=== PATIENT | female | born 1940 | race Caucasian/White ===

== ENCOUNTER 2022-11-10 09:45 | Outpatient (RCR) | payer MEDICARE, BC, SELFPAY | END 2023-01-09 23:59 | disposition home or self-care (01) | PROVIDERS: PCP Family Medicine; Visit Provider Otolaryngology | DX: R53.1 Weakness (principal); J38.01 Paralysis of vocal cords and larynx, unilateral; Z51.89 Encounter for other specified aftercare; C50.919 Malignant neoplasm of unspecified site of unspecified female breast; C78.00 Secondary malignant neoplasm of unspecified lung; C79.51 Secondary malignant neoplasm of bone ==

== ENCOUNTER 2022-12-31 16:13 | Inpatient (IN) | payer MEDICARE, BC, SELFPAY ==
[2022-12-31 16:36] VITALS: BP 137/55; PULSE 71; RESP 14; TEMP 36.9; O2SAT 93; O2SAT 94; BMI 27.5
--- NOTE | 2022-12-31 16:40 | P.IMHP_ITS ---
Hospitalist- H&P: HPI History of Present Illness Date Seen: 12/31/22 Chief complaint: Direct Admit Narrative: ADMISSION HISTORY AND PHYSICAL - HOSPITALIST Chief Complaint: Difficulty swallowing, metastatic breast cancer, pain control, new bilateral leg swelling HPI: This is an 82-year-old female who presents as a direct admit from our local [facility] in [place]. She was being seen today for follow-up when she was noted be weak, in pain, acute CHF, and not thriving in her home environment. She was 1st diagnosed with breast cancer in 1997. She had a 2nd primary many years later (2014). A bilateral mastectomy at that time (2014). 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 In the last 4 months she has started chemotherapy and is scheduled to start radiation tomorrow all of which is palliative. She is seen by Dr. Leger in oncology and Dr. Beatty in primary care. While the patient understands that she has a terminal prognosis she is ?not ready? for Hospice and go to [facility]. Her past medical history other than the breast cancer is relevant for chronic valvular cardiomyopathy, coronary artery disease, osteoporosis, type 2 insulin- dependent diabetes and chronic kidney disease. Patient has noted in the last couple of weeks that she has had a rapid increase in the swelling in her legs (to the point of weeping) and is having more trouble breathing in the last 24-48 hours. She noted at the oncology visit 2 days [employer] that she was up 10 lb. She has noted a more raspy breathing as well. No chest pain. No fever. No diarrhea. No vomiting. She has a hoarse voice from the metastatic scarring in her vocal cords and is having more trouble with swallowing her pills and her p.o. intake. Earlier today she she felt after eating a poe that is now stuck in her upper throat. She has tried coughing drinking and still having trouble. ER COURSE: N/A CODE STATUS: DNR/DNI EMERGENCY CONTACT PLAN: Romain, . I've updated the PFSH, medications and allergies in the [facility] tabs. INVESTIGATIONS: LABS/MICRO/ECG/IMAGING I've reviewed the labs from 12/30/22 and recent visits with oncology and primary care Yesterday, 12/30/22, her white blood cell count was 5.4. Her hemoglobin was 11.9. Her platelets were 262. She is hyponatremic at 129. Her glucose is 204. She has a normal potassium normal chloride. Her creatinine is up to 1.43 from 1.27 earlier this month. Her BUN is 40. Her alk-phos is elevated at 288 as is her AST and ALT at 71/64. INR is 2.1. She is on Coumadin. REVIEW OF SYSTEMS: 12-point ROS completed with patient and negative unless otherwise stated in HPI or below. PHYSICAL EXAM: CONSTITUTIONAL: Chronically ill-appearing. Tired. Breast be voice. However, alert and cognition is normal. VITAL SIGNS: see record. HEENT: Normocephalic, atraumatic. PERRL, EOMI, conjunctivae pink, no scleral icterus. Ears and nose externally normal. Pharynx dry with dried lips. NECK: No JVD. No carotid bruit, no thyromegaly, no adenopathy. CHEST: Audible wheezing, stridor. Mild respiratory distress bilateral wheezing. HEART: S1 and S2 normal. No harsh murmurs. Edema 4+. Bilateral legs weeping. MUSCULOSKELETAL: No gross joint deformity or swelling. NEURO: Cranial nerves intact. Grossly intact. No asymmetric findings. SKIN: No rashes, petechiae, concerning changes PSYCHIATRIC: Euthymic. ADMIT TO MEDSURG: FLOOR CARE DVT: Continue Coumadin GI: PO intake, ppi Time spent: 70 minutes examining patient, conferring with family and patient, care staff, developing care plan [facility] Medical History (Updated 12/31/22 @ 18:16 by Madeline Byers MD) Atherosclerotic heart disease ?I25.10 - Atherosclerotic heart disease of cab[place] coronary artery without angina pectoris (ICD-10) Breast cancer metastasized to lung ?C50.919 - Malignant neoplasm of unspecified site of unspecified female breast (ICD-10) ?C78.00 - Secondary malignant neoplasm of unspecified lung (ICD-10) Chronic anticoagulation ?Z79.01 - buttermaker continuous churn (current) use of anticoagulants (ICD-10) Chronic kidney disease ?N18.9 - Chronic kidney disease, unspecified (ICD-10) Essential hypertension ?I10 - Essential (primary) hypertension (ICD-10) History of septic arthritis ?Z87.39 - Personal history of other diseases of the musculoskeletal system and connective tissue (ICD-10) Insulin dependent diabetes mellitus BHARATH (obstructive sleep apnea) ?G47.33 - Obstructive sleep apnea (adult) (pediatric) (ICD-10) Osteoporosis ?M81.0 - Age-related osteoporosis without current pathological fracture (ICD- 10) Paroxysmal A-fib ?I48.0 - Paroxysmal atrial fibrillation (ICD-10) Valvular heart disease ?I38 - Endocarditis, valve unspecified (ICD-10) Surgical History (Updated 12/31/22 @ 18:00 by Madeline Byers MD) H/O bilateral mastectomy ?Z90.13 - Acquired absence of bilateral breasts and nipples (ICD-10) H/O vertebroplasty ?Z98.890 - Other specified postprocedural states (ICD-10) H/O: hysterectomy ?Z90.710 - Acquired absence of both cervix and uterus (ICD-10) History of ankle surgery ?Z98.890 - Other specified postprocedural states (ICD-10) History of appendectomy ?Z90.49 - Acquired absence of other specified parts of digestive tract (ICD- 10) History of revision of total replacement of right knee joint ?Z96.651 - Presence of right artificial knee joint (ICD-10) Presence of cardiac pacemaker ?Z95.0 - Presence of cardiac pacemaker (ICD-10) Status post right knee replacement ?Z96.651 - Presence of right artificial knee joint (ICD-10) Social History (Updated 12/31/22 @ 18:00 by Madeline Byers MD) Narrative: to Romain. Five adult boys. Many grandchildren and great grandchildren. Retired teacher. Loved to teach Middle School. Nonsmoker. No drinking. Highest level of school completed/degree received: Bachelor's degree Smoking Status: Never smoker How often do you have a drink containing alcohol: never AUDIT-C Alcohol total score: 0 Non-prescribed substance use: denies use Caffeine: Yes (1 cup of black coffee) Meds Home Medications and Allergies Home Medications Medication Instructions Recorded Confirmed Type atorvastatin 20 mg tablet 20 mg PO HS 12/31/22 12/31/22 History brimonidine 0.2 % eye drops 1 drp ophthalmic (eye) BID 12/31/22 12/31/22 History carvedilol 12.5 mg tablet 12.5 mg PO BID 12/31/22 12/31/22 History dorzolamide 2 % eye drops drp ophthalmic (eye) 12/31/22 History escitalopram oxalate 5 mg tablet 5 mg PO QAM 12/31/22 12/31/22 History gabapentin 300 mg capsule 300 - 600 mg PO TID 12/31/22 12/31/22 History insulin aspart U-100 100 unit/mL subcut 3XD 12/31/22 History subcutaneous solution (Novolog U-100 Insulin aspart) insulin glargine 100 unit/mL 12 unit subcut HS 12/31/22 12/31/22 History subcutaneous solution (Lantus U-100 Insulin) latanoprost 0.005 % eye drops 1 drp ophthalmic (eye) QPM 12/31/22 12/31/22 History ondansetron HCl 8 mg tablet 8 mg PO Q8H PRN nausea/vomiting 12/31/22 12/31/22 History prochlorperazine maleate 5 mg 5 mg PO Q6H PRN nausea/vomiting 12/31/22 12/31/22 History tablet tramadol 50 mg tablet 50 mg PO Q6H 12/31/22 12/31/22 History warfarin 5 mg tablet 2.5 mg PO DAILY 12/31/22 12/31/22 History Allergies Allergy/AdvReac Type Severity Reaction Status Date / Time Opioids - Morphine Analogues AdvReac Intermediate Agitated Verified 12/31/22 17:12 Assessment and Plan Assessment and plan (1) Breast cancer metastasized to lung: Problem comment: -Extremely poor prognosis. Patient is clear tells me she does not want CPR, nor to be intubated. However, she wants treatment and continued palliative care for quality of life and extension of her life as long as possible. -pain control: continue gabapentin, IV tylenol for tonight, trial of SL morphine concentrate (understanding the nuances of her allergies) to achieve best pain control. a few doses of IV Toradol (understanding her CKD and age) -workup shows mediastinal lymphadenopathy, left hilar mass, multiple skeletal lesions. -Started on Ribocilib, faslodex in early 2022. Held riboclilib in november secondary to rising creatinine and overall decline. Status: Acute (2) Acute systolic heart failure due to valvular disease: Problem comment: On room air. Mild respiratory distress. Large edematous legs. We may need update the echo but is currently on file as of October. I will initiate diuresis and make sure she is rate controlled and and observe for ischemia. 11/13 Final Impressions: 1. LVEF 50-55% with moderate LV dilation [LVIDd 5.7 cm]. 2. Moderately dilated RV with preserved global function. 3. Device leads in the right heart. 4. Eann-ry-bgfcplto mitral regurgitation. 5. Fsenptsm-ns-tuzmoy tricuspid regurgitation. 6. Dilated IVC with no respiratory variability. Mean RAP estimate 15-20 mmHg. 7. Severe biatrial enlargement. Status: Acute (3) Hyponatremia: Problem comment: -2 L water restriction -normal saline bolus -furosemide -trend Status: Acute (4) Failure to thrive: Problem comment: -multifactorial; chemo side effects, burden of disease, long standing heart disease, diabetes, adjustment disorder. -supportive care; speech consult, ENT consult for food stuck and vocal cord issues Status: Acute (5) Chronic kidney disease: Problem comment: Baseline about 1.2, currently 1.4 Status: Acute (6) Atherosclerotic heart disease: Problem comment: 06/2020; status post KIANNA to the mid LAD, status post KIANNA x2 to OM1 Status: Acute (7) Presence of cardiac pacemaker: Status: Acute (8) Paroxysmal A-fib: Problem comment: -chronic Coumadin therapy -chronic coreg therapy Status: Acute (9) Chronic anticoagulation: Problem comment: -continue. high risk for VTE. Status: Acute (10) Essential hypertension: Status: Acute (11) Insulin dependent diabetes mellitus: Problem comment: A1c pending. Sliding scale insulin. Accu-Cheks. Continue her 12 units of Lantus at night and sliding scale throughout the day. Status: Acute (12) Valvular heart disease: Problem comment: Reviewed echo from November of 2022. BNP, Trending troponin, obtaining ECG. Diuresis Status: Acute (13) BHARATH (obstructive sleep apnea): Status: Acute (14) Osteoporosis: Problem comment: History of compression fracture. has been on bisphosphonates and injectables Status: Acute
[2022-12-31 17:12] VITALS: BP 137/55; PULSE 71; RESP 14; TEMP 36.9; O2SAT 93
[2022-12-31 17:21] VITALS: O2SAT 93
--- NOTE | 2022-12-31 17:25 | CRLHL7_ITS ---
For Patients: As a result of the Century Cures Act, medical imaging exams and procedure reports are released immediately into your electronic medical record. You may view this report before your referring provider. If you have questions, please contact your health care provider. INDICATION: CHF. METASTATIC BREAST CANCER. TECHNIQUE: Chest radiograph 1 view COMPARISON: 09/14/2020 FINDINGS: Heart size remains enlarged. Left subclavian pacemaker leads are intact. Stable lung markings. No definite blunting of costophrenic sulci. No displaced rib fractures. IMPRESSION: 1. Cardiomegaly with no definite interstitial pulmonary edema, focal infiltrate, or definite pleural effusions. Dictated by Blake Arora MD @ 12/31/2022 7:22:16 PM Dictated by: Blake Arora MD @ 12/31/2022 19:22:23 (Electronically Signed)
[2022-12-31 17:46] LABS: HCO3 VBG 20 mmol/L (21-28); Ionized Calcium* 1.13 mmol/L (1.11-1.30); Lactate* 1.5 mmol/L (0.5-1.9); PCO2 VBG 38 mmHG (40-50); PO2 VBG 35.2 mmHG (25-47); pH VBG 7.336 (7.32-7.43)
[2022-12-31 17:52] LABS: Hematocrit 38.8 % (33.0-51.0); Hemoglobin* 12.4 gm/dL (12.0-16.0); Mean Corpuscular HGB Conc 32 gm/dL (32-36); Mean Corpuscular Hemoglobin 28 pg (26-34); Mean Corpuscular Volume 89 fL (80-100); Platelet Count* 271 K/uL (140-440); Red Blood Count 4.38 m/uL (4.00-5.20); White Blood Count* 4.67 K/uL (4.50-11.00)
[2022-12-31 18:06] LABS: Slide Review Reflex No
[2022-12-31 18:10] LABS: Chloride* 103 mmol/L (96-114); Potassium* 4.5 mmol/L (3.6-5.1); Sodium* 129 mmol/L (135-149)
[2022-12-31 18:12] LABS: Creatinine* 1.1 mg/dL (0.5-1.5); Est. Creatinine Clearance* 39.09; Estimated Glomerular Filt Rate 50 ml/min; Lipase* 56 U/L (23-300)
[2022-12-31 18:13] LABS: Blood Urea Nitrogen* 36 mg/dL (7-30); Carbon Dioxide* 18 mmol/L (20-32); Glucose* 127 mg/dL (60-115)
[2022-12-31 18:14] LABS: Calcium* 8.5 mg/dL (8.4-10.6)
[2022-12-31 18:16] LABS: C Reactive Protein* 5.9 mg/dL (0.5-1.0)
[2022-12-31] MEDS: 0.9 % SODIUM CHLORIDE 500 ML 500 ML 250 ML IV (18:18)
[2022-12-31 18:20] LABS: Hemoglobin A1C* 7.22 % (0-5.6)
[2022-12-31] MEDS: FUROSEMIDE 10 MG/ML inj 80 MG IVP (18:20)
[2022-12-31 18:23] LABS: NT Pro B Type NatriureticPept* 10600 pg/mL
[2022-12-31 18:25] LABS: Troponin I* 0.02 ng/mL (0.01-0.04)
[2022-12-31 18:30] LABS: Procalcitonin* 0.12 ng/mL (<0.50)
[2022-12-31] MEDS: ACETAMINOPHEN 1,000 MG/100 ML INJ 1000 MG IVPB (18:50)
[2022-12-31] MEDS: MORPHINE 10 MG/0.5 ML ORAL SOLN PO (18:52)
--- NOTE | 2022-12-31 19:46 | PC.NURSE ---
Pt direct admit at 1630 this shift, required Ax2 w/ taking a couple steps to bed. A&O, BLE edema w/ weeping, nonstick dressing and DANIA wraps applied, legs elevated on pillows, VS stable, on playground monitor and con't pulse ox, on RA sating low 90s%. Duncan placed per order, IV started to R wrist, NS bolus of 500ml then will begin IVF per order. Received scheduled Tylenol IV, PRN Moprhine 2mg PO as trial dose per MD instruction. Pt's at bedside. Call light within reach.
[2022-12-31 20:15] VITALS: BP 129/43; PULSE 57; RESP 12; TEMP 36.6; O2SAT 94
[2022-12-31] MEDS: 0.9 % SODIUM CH + KCL 20 mEq/L 1,000 ML 100 ML IV (20:27)
[2022-12-31] MEDS: TRAMADOL HCL 50 MG TABLET PO (20:28)
[2022-12-31] MEDS: WARFARIN 5 MG TABLET 2.5 MG PO (20:29)
[2022-12-31] MEDS: LORazepam 2 MG/ML inj IVP (20:36)
[2022-12-31 20:45] VITALS: TEMP 36.6
[2022-12-31] MEDS: BRIMONIDINE TARTRATE 0.2% OPHTH 1 DROP EYE-BOTH (22:01)
[2022-12-31] MEDS: GABAPENTIN 300 MG CAPSULE PO (22:02)
[2022-12-31] MEDS: LATANOPROST 0.005% OPHTH 1 DROP EYE-BOTH (22:02)
[2022-12-31] MEDS: carvediloL 6.25 MG TABLET 12.5 MG PO (22:03)
[2022-12-31] MEDS: MELATONIN 3 MG TABLET PO (22:05)
[2022-12-31 22:52] VITALS: PULSE 57; RESP 12; O2SAT 93
[2023-01-01] VITALS (13 sets, daily range): BP systolic 109–129; BP diastolic 44–91; PULSE 50–65; RESP 12–20; TEMP 36.1–36.8; O2SAT 92–95
[2023-01-01] MEDS: FUROSEMIDE 10 MG/ML inj 40 MG IVP ×4 (03:34→17:27)
--- NOTE | 2023-01-01 05:39 | PC.NURSE ---
Patient is alert and oriented x 3, on 2.5L O2, 2L fluid restriction, Assist x 2. Duncan catheter remains in place and output is good. At start of shift patient was anxious, weepy and restless, gave 2mg Lorazepam, started her on 2.5L O2 and she became much calmer. Patient has not complained of pain. Patient experiences SOB with and without exertion, also audible wet sounding inspiratory and expiratory wheezing/course crackles. K+Cl stopped at 0530 until labs can be drawn. Patient placed in chair at 0515 d/t increase in difficulty breathing.
[2023-01-01] MEDS: IPRAT-ALBUT 0.5-2.5 MG/3 ML NEB 1 NEB IH (06:05)
[2023-01-01 06:48] LABS: Albumin* 3.1 g/dL (3.3-5.0); Chloride* 108 mmol/L (96-114); Potassium* 3.9 mmol/L (3.6-5.1); Sodium* 134 mmol/L (135-149)
[2023-01-01 06:50] LABS: Bilirubin Total* 1.1 mg/dL (0.1-1.5); Carbon Dioxide* 20 mmol/L (20-32); Creatinine* 1.1 mg/dL (0.5-1.5); Est. Creatinine Clearance* 39.09; Estimated Glomerular Filt Rate 50 ml/min
[2023-01-01 06:51] LABS: Alanine Aminotransferase* 52 U/L (4-35); Alkaline Phosphatase* 261 U/L (40-150); Aspartate Amino Transferase* 64 U/L (12-35); Blood Urea Nitrogen* 30 mg/dL (7-30); Calcium* 7.8 mg/dL (8.4-10.6); Glucose* 69 mg/dL (60-115); Total Protein* 5.8 g/dL (6.0-8.3)
[2023-01-01 06:57] LABS: Basophils Absolute Auto 0.02 K/uL (0.00-0.30); Basophils Percent Auto 0.4 % (0.0-3.0); Eosinophils Absolute Auto 0.05 K/uL (0.00-0.50); Eosinophils Percent Auto 1.1 % (0.0-7.0); Hematocrit 36.5 % (33.0-51.0); Hemoglobin* 11.8 gm/dL (12.0-16.0); Immature Granulocytes Abs Auto 0.01 K/uL (0.00-0.30); Immature Granulocytes Pct Auto 0.2 %; Lymphocytes Percent Auto 10.9 % (20-44); Mean Corpuscular HGB Conc 32 gm/dL (32-36); Mean Corpuscular Hemoglobin 29 pg (26-34); Mean Corpuscular Volume 88 fL (80-100); Monocytes Percent Auto 15.7 % (0.0-11.0); Neutrophils Absolute Auto 3.29 K/uL (1.7-7.0); Neutrophils Percent Auto 71.7 % (42.0-72.0); Platelet Count* 293 K/uL (140-440); RDW Coefficient of Variation % 21.5 % (11.5-15.5); Red Blood Count 4.13 m/uL (4.00-5.20); White Blood Count* 4.59 K/uL (4.50-11.00)
[2023-01-01 06:59] LABS: Slide Review Reflex Yes
--- NOTE | 2023-01-01 07:02 | CRLHL7_ITS ---
For Patients: As a result of the Century Cures Act, medical imaging exams and procedure reports are released immediately into your electronic medical record. You may view this report before your referring provider. If you have questions, please contact your health care provider. INDICATION: [id number]. TECHNIQUE: Chest 1 views. COMPARISON: 12/31/2022. FINDINGS: Cardiovasculature and mediastinum: The cardiac pacemaker is unchanged. The cardiac silhouette is enlarged but unchanged. The pulmonary vascularity is within normal limits. Lungs and pleural spaces: New/increasing left perihilar and infrahilar opacity. Right lung remains clear. No sign of pleural effusion. No pneumothorax. Bones and soft tissues: No significant findings. IMPRESSION: 1. New/increasing left perihilar/infrahilar opacity. 2. Unchanged cardiomegaly Dictated by Juan Pablo Cobian MD @ 01/01/2023 7:30:55 AM (Electronically Signed)
[2023-01-01 07:42] LABS: Slide Review Acceptable Review (Acceptable)
[2023-01-01] MEDS: BRIMONIDINE TARTRATE 0.2% OPHTH 1 DROP EYE-BOTH ×2 (09:07→20:56)
[2023-01-01] MEDS: PIPERACILLIN/TAZOBACTAM 3.375 GM in 0.9 % SODIUM CHLORIDE Mini-bag 100 ML IVPB ×3 (09:07→20:56)
[2023-01-01] MEDS: carvediloL 6.25 MG TABLET 12.5 MG PO ×2 (09:08→20:58)
[2023-01-01] MEDS: ESCITALOPRAM 10 MG TABLET 5 MG PO (09:08)
[2023-01-01] MEDS: TRAMADOL HCL 50 MG TABLET PO ×3 (09:08→20:57)
[2023-01-01] MEDS: GABAPENTIN 300 MG CAPSULE PO ×4 (09:08→20:58)
[2023-01-01] MEDS: MULTIVITAMIN/MINERALS 1 TABLET 0.5 TAB PO (09:09)
[2023-01-01] MEDS: SODIUM CHLORIDE 0.9 % (FLUSH) 10 ML SYRINGE 5 ML IVF ×4 (09:10→20:58)
[2023-01-01] MEDS: MORPHINE 10 MG/0.5 ML ORAL SOLN PO (09:53)
--- NOTE | 2023-01-01 14:27 | P.IMPN_ITS ---
Progress Note: A&P Assessment and plan (1) Breast cancer metastasized to lung: Problem details: -Extremely poor prognosis. Patient is clear tells me she does not want CPR, nor to be intubated. However, she wants treatment and continued palliative care for quality of life and extension of her life as long as possible. -pain control: continue gabapentin, IV tylenol for tonight, trial of SL morphine concentrate (understanding the nuances of her allergies) to achieve best pain control. a few doses of IV Toradol (understanding her CKD and age) -workup shows mediastinal lymphadenopathy, left hilar mass, multiple skeletal lesions. -Started on Ribocilib, faslodex in early 2022. Held riboclilib in November secondary to rising creatinine and overall decline. Status: Acute (2) Acute systolic heart failure due to valvular disease: Problem details: - requiring low dose supplemental oxygen, + LE edema - tolerating diuresis - Last TTE 11/13 Final Impressions: 1. LVEF 50-55% with moderate LV dilation [LVIDd 5.7 cm]. 2. Moderately dilated RV with preserved global function. 3. Device leads in the right heart. 4. Xwjn-su-tzkhxcen mitral regurgitation. 5. Xtbzaafm-nv-dplxfi tricuspid regurgitation. 6. Dilated IVC with no respiratory variability. Mean RAP estimate 15-20 mmHg. 7. Severe biatrial enlargement. Status: Acute (3) Hyponatremia: Problem details: -2 L water restriction -normal saline bolus -furosemide -trend Status: Acute (4) Failure to thrive: Problem details: -multifactorial; chemo side effects, burden of disease, long standing heart disease, diabetes, adjustment disorder. -supportive care; speech consult, ENT consult for food stuck and vocal cord issues Status: Acute (5) Chronic kidney disease: Problem details: Baseline about 1.2, currently 1.1 Status: Acute (6) Presence of cardiac pacemaker: Status: Acute (7) Paroxysmal A-fib: Problem details: -chronic Coumadin therapy -chronic coreg therapy Status: Acute (8) Chronic anticoagulation: Problem details: -continue. high risk for VTE. Status: Acute (9) Insulin dependent diabetes mellitus: Problem details: A1c pending. Sliding scale insulin. Accu-Cheks. Continue her 12 units of Lantus at night and sliding scale throughout the day. Status: Acute (10) Elevated LFTs: Problem details: - at baseline per chart review, likely related to chronic illness/comorbidities Status: Acute Plan - continue therapies, diuresis, IV antibiotics - patient understands that comfort care is an option; contemplative - Romian updated at bedside, questions answered Subjective Date Seen: 01/01/23 Interval history: Mikel continues to have intermittent tachypnea. She denies chest pain, does endorse intermittent dyspnea. Imaging this morning reveals left sided infiltrate, amenable to starting IV antibiotics. She will be seen by our therapy teams and ENT today. Exam Narrative: Exam Narrative: GEN: Awake, frail appearing, intermittently tachypneic HEENT: EOMIs bilaterally, no scleral icterus CV: RRR R: Rhonchi throughout bilateral lung salguero Ab: no ttp Ext: 3+ edema BLE Psych: Appropriate Const: Vital Signs, click to edit/add: Vital Signs - 24 hr 12/31/22 16:36 12/31/22 16:36 12/31/22 17:21 Temperature 98.4 F Pulse Rate Pulse Rate [Right Pulse Oximeter] 71 Respiratory Rate 14 14 Blood Pressure [Le ft Arm] 137/55 L Pulse Oximetry 94 93 93 Oxygen Delivery Me thod Room Air Room Air Oxygen Flow Rate 12/31/22 17:12 12/31/22 17:12 12/31/22 20:45 Temperature 98.4 F 97.8 F Pulse Rate Pulse Rate [Right Pulse Oximeter] 71 Respiratory Rate 14 Blood Pressure [Le ft Arm] 137/55 L Pulse Oximetry 93 93 Oxygen Delivery Me thod Room Air Room Air Oxygen Flow Rate 12/31/22 22:52 12/31/22 22:52 12/31/22 20:15 Temperature 97.8 F Pulse Rate Pulse Rate [Right Pulse Oximeter] 57 L 57 L Respiratory Rate 12 12 Blood Pressure [Le ft Arm] 129/43 L Pulse Oximetry 93 94 Oxygen Delivery Me thod Nasal Cannula Nasal Cannula Oxygen Flow Rate 2 2.5 01/01/23 00:12 01/01/23 01:00 01/01/23 03:01 Temperature 98.2 F 97.3 F L Pulse Rate 50 L Pulse Rate [Right Pulse Oximeter] 57 L Respiratory Rate 12 Blood Pressure [Le ft Arm] 126/45 L Pulse Oximetry 94 Oxygen Delivery Me thod Nasal Cannula Oxygen Flow Rate 2.5 01/01/23 03:57 01/01/23 05:38 01/01/23 07:38 Temperature 97 F L Pulse Rate 63 Pulse Rate [Right Pulse Oximeter] 53 L 53 L Respiratory Rate 12 12 Blood Pressure [Le ft Arm] 121/44 L Pulse Oximetry 95 Oxygen Delivery Me thod Nasal Cannula Oxygen Flow Rate 2.5 01/01/23 07:20 01/01/23 07:20 01/01/23 07:20 Temperature 98.0 F Pulse Rate Pulse Rate [Right Pulse Oximeter] 62 62 Respiratory Rate 18 18 Blood Pressure [Le ft Arm] 115/68 Pulse Oximetry 92 92 Oxygen Delivery Me thod Nasal Cannula Nasal Cannula Oxygen Flow Rate 1.0 1.0 01/01/23 07:20 01/01/23 07:20 01/01/23 11:16 Temperature 98.0 F Pulse Rate Pulse Rate [Right Pulse Oximeter] 51 L Respiratory Rate 18 18 Blood Pressure [Le ft Arm] 109/46 L Pulse Oximetry 92 92 95 Oxygen Delivery Me thod Nasal Cannula Nasal Cannula Oxygen Flow Rate 1.0 1.0 01/01/23 11:16 Temperature Pulse Rate Pulse Rate [Right Pulse Oximeter] Respiratory Rate Blood Pressure [Le ft Arm] Pulse Oximetry 95 Oxygen Delivery Me thod Oxygen Flow Rate Labs Labs: Laboratory Results - last 24 hr 12/31/22 01/01/23 17:35 06:00 WBC 4.67 4.59 RBC 4.38 4.13 Hgb 12.4 11.8 L Hct 38.8 36.5 MCV 89 88 MCH 28 29 MCHC 32 32 RDW Coeff of Fly 21.5 H Plt Count 271 293 Neut % (Auto) 71.7 Lymph % (Auto) 10.9 L [place] % (Auto) 15.7 H Eos % (Auto) 1.1 Baso % (Auto) 0.4 Neut # (Auto) 3.29 Lymph # (Auto) 0.50 L [place] # (Auto) 0.70 Eos # (Auto) 0.05 Baso # (Auto) 0.02 Diff Slide Review Acceptable Review VBG pH 7.336 VBG pCO2 38 L VBG pO2 35.2 VBG HCO3 20 L Sodium 129 L 134 L Potassium 4.5 3.9 Chloride 103 108 Carbon Dioxide 18 L 20 BUN 36 H 30 Creatinine 1.1 1.1 Estimated Creat Clear 39.09 39.09 Estimated GFR 50 50 Glucose 127 H 69 Hemoglobin A1c 7.22 H Lactate 1.5 Calcium 8.5 7.8 L Ionized Calcium Shruthi 1.13 Magnesium 2.0 Total Bilirubin 1.1 AST 64 H ALT 52 H Alkaline Phosphatase 261 H Troponin I 0.02 C-Reactive Protein 5.9 H NT-Pro-B Natriuret Pep 22167 Total Protein 5.8 L Albumin 3.1 L Lipase 56 Procalcitonin 0.12 TSH 3.370
--- NOTE | 2023-01-01 14:44 | PC.NURSE ---
end of shift. pt has been very pleasant. she is [place] and has hearing aids. she is on a 2L fluid restriction, . Duncan catheter is patent. weaned down to 1L nc. she has been up in the chair. PT OT and RT all worked with the pt today. she does get SOB with activity. cont Sao2 s on. 90-95% on 1L nc. pt LS are junky and wet sounding. BLE edema w/ weeping, nonstick dressing and DANIA wraps where on and off. legs are elevated on pillows, VS stable, on bus driver/monitor tele shows paced and BBB> she got po morphine for generalized pain. SL is patent. she got IV antibiotics. she got Lasix 2 times today. she is a fall risk. was here.
[2023-01-01] MEDS: POTASSIUM CHLORIDE 10 MEQ CAPSULE ER 20 MEQ PO (17:27)
[2023-01-01] MEDS: ACETAMINOPHEN 500 MG TABLET 1000 MG PO (17:28)
[2023-01-01] MEDS: WARFARIN 5 MG TABLET 2.5 MG PO (17:29)
--- NOTE | 2023-01-01 18:17 | PC.NURSE ---
Shift Summary 15-19: Patient pleasant and cooperative. Up with two assist to recliner for dinner. Soft foods and thickened liquid diet, tolerating well. Continues with o2 @ 1L/NC. Pain in calves when DANIA wraps placed back on, appears comfortable in recliner at this time. Duncan cath intact and patent.
[2023-01-01] MEDS: MELATONIN 3 MG TABLET PO (20:58)
[2023-01-02] VITALS (11 sets, daily range): BP systolic 113–136; BP diastolic 41–51; PULSE 52–63; RESP 20–22; TEMP 36.1–36.7; O2SAT 90–93
[2023-01-02] MEDS: ACETAMINOPHEN 500 MG TABLET 1000 MG PO ×3 (00:21→12:50)
[2023-01-02] MEDS: IPRAT-ALBUT 0.5-2.5 MG/3 ML NEB 1 NEB IH ×4 (00:28→23:36)
[2023-01-02] MEDS: PIPERACILLIN/TAZOBACTAM 3.375 GM in 0.9 % SODIUM CHLORIDE Mini-bag 100 ML IVPB ×4 (02:06→19:56)
[2023-01-02] MEDS: FUROSEMIDE 10 MG/ML inj 40 MG IVP ×2 (02:06→09:38)
[2023-01-02] MEDS: TRAMADOL HCL 50 MG TABLET PO ×4 (02:50→20:38)
[2023-01-02] MEDS: MORPHINE 10 MG/0.5 ML ORAL SOLN PO ×2 (04:27→22:16)
--- NOTE | 2023-01-02 07:00 | PC.NURSE ---
Pt alert and oriented x3 but forgetful at times. Afebrile. Pt reports 7/10 pain in left leg, pain managed with scheduled and PRN medications. Pt denies chest pain and N/V. SOB was noted with exertion, lung sounds are course with inspiratory and expiratory wheezing, PRN neb was given with relief. Pt leg dressing were CDI. Pt?s catheter is patent and draining. Pt is tolerating a reg diet with thickened liquids and is up A2 with gait belt and walker. Pt slept very little throughout night.?
[2023-01-02 07:08] LABS: Basophils Absolute Auto 0.02 K/uL (0.00-0.30); Basophils Percent Auto 0.4 % (0.0-3.0); Eosinophils Absolute Auto 0.06 K/uL (0.00-0.50); Eosinophils Percent Auto 1.3 % (0.0-7.0); Hematocrit 37.9 % (33.0-51.0); Immature Granulocytes Abs Auto 0.03 K/uL (0.00-0.30); Immature Granulocytes Pct Auto 0.6 %; Lymphocytes Percent Auto 11.2 % (20-44); Mean Corpuscular HGB Conc 32 gm/dL (32-36); Mean Corpuscular Hemoglobin 28 pg (26-34); Mean Corpuscular Volume 89 fL (80-100); Monocytes Percent Auto 14.8 % (0.0-11.0); Neutrophils Percent Auto 71.7 % (42.0-72.0); Platelet Count* 250 K/uL (140-440); Red Blood Count 4.25 m/uL (4.00-5.20); White Blood Count* 4.74 K/uL (4.50-11.00)
[2023-01-02 07:09] LABS: Slide Review Reflex No
[2023-01-02 07:17] LABS: Chloride* 108 mmol/L (96-114)
[2023-01-02 07:18] LABS: INR 2.59 (0.91-1.10); Sodium* 136 mmol/L (135-149)
[2023-01-02 07:20] LABS: Creatinine* 1.1 mg/dL (0.5-1.5); Est. Creatinine Clearance* 39.09; Estimated Glomerular Filt Rate 50 ml/min
[2023-01-02 07:21] LABS: Blood Urea Nitrogen* 25 mg/dL (7-30); Calcium* 8.2 mg/dL (8.4-10.6); Carbon Dioxide* 21 mmol/L (20-32); Glucose* 137 mg/dL (60-115); Potassium* 3.9 mmol/L (3.6-5.1)
[2023-01-02] MEDS: SODIUM CHLORIDE 0.9 % (FLUSH) 10 ML SYRINGE 5 ML IVF ×2 (08:34→20:39)
[2023-01-02] MEDS: MULTIVITAMIN/MINERALS 1 TABLET 0.5 TAB PO (08:37)
[2023-01-02] MEDS: POTASSIUM CHLORIDE 10 MEQ CAPSULE ER 20 MEQ PO ×2 (08:37→18:08)
[2023-01-02] MEDS: BRIMONIDINE TARTRATE 0.2% OPHTH 1 DROP EYE-BOTH ×2 (08:37→20:37)
[2023-01-02] MEDS: carvediloL 6.25 MG TABLET 12.5 MG PO ×2 (08:37→20:38)
[2023-01-02] MEDS: ESCITALOPRAM 10 MG TABLET 5 MG PO (08:38)
[2023-01-02] MEDS: GABAPENTIN 300 MG CAPSULE PO ×3 (08:38→20:39)
[2023-01-02] MEDS: DORZOLAMIDE HCL 2 % OPHTH DROP 1 DROP EYE-BOTH ×2 (09:50→20:44)
--- NOTE | 2023-01-02 12:27 | PC.NURSE ---
Pt stronger today with transfers, able to get up with Ax1. wheezes to LS. Violettesyn for PNX, pt tolerating well. Ulcer to coccyx, this is chronic, quarter size. Mepilex placed and special cushion brought in by OT. Pt has double masectomy hx and unsure what arm lymph was removed from. left arm swollen, band placed. Dr. Reed updated and will monitor R extremity, IV to R. Duncan d/c'd at 1113 and pt up to void with PT after this. Pills crushed in A.S., no coughing or choking noted when eating soft diet with thickenned liquids. No weeping to bilateral extremities. small open areas healing, wound care done today and legs re-wraped. will continue to monitor.
--- NOTE | 2023-01-02 14:03 | PC.NURSE ---
advanced to regular diet, Fluid restriction no longer in place d/t sodium WNL. continue thicknened liquids. insulin 187 - 3 units.
--- NOTE | 2023-01-02 14:28 | PC.SOCIAL ---
Discharge Planning: Met with patient, Viviana who goes by Mikel' who was very drowsy. We decided to wait until spouse came back in afternoon. Met with spouse, Prashant, and Mikel in afternoon. Discussed plan for Mikel going home, which is what Prashant wishes. Prashant is unsure of care that will be needed when she discharges. Given social work resource list for additional help in the home if needed. Prashant and Mikel wanted information about hospice. This news writer explained hospice philosophy and services. Answered questions. Given list of area hospices. Mikel and Prashant will discuss information. Mikel will call with any additional questions. Social work to follow up as needed.
--- NOTE | 2023-01-02 15:52 | PM.IMPN1 ---
Progress Note: A&P Assessment and plan (1) Breast cancer metastasized to lung: Problem details: -Extremely poor prognosis. Patient is clear tells me she does not want CPR, nor to be intubated. However, she wants treatment and continued palliative care for quality of life and extension of her life as long as possible. -pain control: continue gabapentin, trial of SL morphine concentrate (understanding the nuances of her allergies) to achieve best pain control. -workup shows mediastinal lymphadenopathy, left hilar mass, multiple skeletal lesions. -Started on Ribocilib, faslodex in early 2022. Held riboclilib in November secondary to rising creatinine and overall decline. Today she appears to be somewhat sedated I am concerned that the pain medication which are providing palliation of her pain are also diminishing her ability to function independently. Status: Acute (2) Acute systolic heart failure due to valvular disease: Problem details: - requiring low dose supplemental oxygen, + LE edema - tolerating diuresis - Last TTE 11/13 Final Impressions: 1. LVEF 50-55% with moderate LV dilation [LVIDd 5.7 cm]. 2. Moderately dilated RV with preserved global function. 3. Device leads in the right heart. 4. Jpct-od-asojuwmj mitral regurgitation. 5. Kxbkztxj-ee-uoxshp tricuspid regurgitation. 6. Dilated IVC with no respiratory variability. Mean RAP estimate 15-20 mmHg. 7. Severe biatrial enlargement. Status: Acute (3) Hyponatremia: Problem details: Continue to trend. Status: Acute (4) Failure to thrive: Problem details: -multifactorial; chemo side effects, burden of disease, long standing heart disease, diabetes, adjustment disorder. -supportive care; speech consult, ENT consult for food stuck and vocal cord issues Expect progressive decline in functional status. Status: Acute (5) Chronic kidney disease: Problem details: Baseline about 1.2, currently 1.1 Status: Acute (6) Presence of cardiac pacemaker: Status: Acute (7) Paroxysmal A-fib: Problem details: -chronic Coumadin therapy -chronic coreg therapy Status: Acute (8) Chronic anticoagulation: Problem details: -continue. high risk for VTE. Daily adjustment of warfarin. Status: Acute (9) Insulin dependent diabetes mellitus: Problem details: A1c pending. Sliding scale insulin. Accu-Cheks. Continue her 12 units of Lantus at night and sliding scale throughout the day. Status: Acute (10) Elevated LFTs: Problem details: - at baseline per chart review, likely related to metastatic disease Status: Acute (11) Decubitus ulcer: Problem details: Continue to work on mobilization Status: Acute (12) Swallowing difficulty: Problem details: Due to paralyzed vocal cord will have mechanical soft diet and thickened liquids Status: Acute Plan Patient is admitted for medical management of above problems. I reviewed in detail the limits to therapy for her metastatic cancer until she is strong enough to take care of herself. She is making progress today and if she can manage at home with her both her nutrition as well as her mobility then she can follow through with [place] for further treatment. Time Spent With Patient Total time spent: Total time spent today is 50 minutes, 35 minutes in discussion with patient and management of breast cancer, pneumonia, end of life care. Subjective Date Seen: 01/02/23 Interval history: 82-year-old female with metastatic breast cancer admitted to the hospital with increasing weakness, lower extremity edema, fatigue, malaise. She has been getting oncology care through [facility]. She was poorly tolerating recent chemotherapy and was scheduled for radiation therapy for a painful lesion in her back but was hospitalized instead. At home she has been weak. She is needing the assistance of her and a walker to get around. She has had ongoing problems with pain control. Exam Narrative: Exam Narrative: She is alert and appears in no distress. She has hoarseness to her voice secondary to her lesion on her vocal cord. Respirations with occasional basilar crackles. No wheezing. Cardiovascular: S1, S2 with a 2/6 systolic murmur. No gallop or rub. Abdomen: Bowel sounds active. Abdomen is soft without tenderness or mass. Extremities with 1 to 2+ edema. Const: Vital Signs, click to edit/add: Vital Signs - 24 hr 01/01/23 16:00 01/01/23 16:00 01/01/23 16:00 Temperature 97.7 F Pulse Rate Pulse Rate [Right Pulse Oximeter] 65 Respiratory Rate 18 18 18 Blood Pressure [Le ft Arm] 119/51 L Pulse Oximetry 93 93 93 Oxygen Delivery Me thod Nasal Cannula Nasal Cannula Nasal Cannula Oxygen Flow Rate 1 1 1 01/01/23 19:00 01/01/23 20:40 01/01/23 23:00 Temperature 97.1 F L Pulse Rate 51 L Pulse Rate [Right Pulse Oximeter] 60 Respiratory Rate 20 Blood Pressure [Le ft Arm] 129/45 L Pulse Oximetry 92 92 Oxygen Delivery Me thod Nasal Cannula Oxygen Flow Rate 1 01/01/23 23:00 01/01/23 23:00 01/01/23 23:00 Temperature Pulse Rate Pulse Rate [Right Pulse Oximeter] 59 L Respiratory Rate 20 20 Blood Pressure [Le ft Arm] Pulse Oximetry 93 93 Oxygen Delivery Me thod Nasal Cannula Oxygen Flow Rate 1 01/01/23 23:00 01/02/23 00:00 01/02/23 04:00 Temperature 97.5 F L Pulse Rate Pulse Rate [Right Pulse Oximeter] 59 L Respiratory Rate 20 20 Blood Pressure [Le ft Arm] 113/91 H Pulse Oximetry 93 93 92 Oxygen Delivery Me thod Nasal Cannula Nasal Cannula Oxygen Flow Rate 1 1 01/02/23 04:00 01/02/23 07:00 01/02/23 07:00 Temperature 97.7 F Pulse Rate Pulse Rate [Right Pulse Oximeter] 58 L 57 L Respiratory Rate 20 20 20 Blood Pressure [Le ft Arm] 123/45 L Pulse Oximetry 92 92 Oxygen Delivery Me thod Room Air Room Air Oxygen Flow Rate 01/02/23 07:00 01/02/23 07:00 01/02/23 08:00 Temperature 98.1 F Pulse Rate 59 L Pulse Rate [Right Pulse Oximeter] 57 L Respiratory Rate 20 Blood Pressure [Le ft Arm] 113/41 L Pulse Oximetry 92 92 Oxygen Delivery Me thod Room Air Oxygen Flow Rate 0 01/02/23 08:00 01/02/23 11:00 01/02/23 12:00 Temperature 97.9 F Pulse Rate Pulse Rate [Right Pulse Oximeter] 60 Respiratory Rate 20 20 Blood Pressure [Le ft Arm] 115/42 L Pulse Oximetry 92 91 92 Oxygen Delivery Me thod Room Air Room Air Oxygen Flow Rate 0 0 Documenting provider has reviewed patient's vital signs: yes Labs Labs: Laboratory Results - last 24 hr 01/02/23 05:58 WBC 4.74 RBC 4.25 Hgb 12.0 Hct 37.9 MCV 89 MCH 28 MCHC 32 RDW Coeff of Fly 22.0 H Plt Count 250 Neut % (Auto) 71.7 Lymph % (Auto) 11.2 L [place] % (Auto) 14.8 H Eos % (Auto) 1.3 Baso % (Auto) 0.4 Neut # (Auto) 3.40 Lymph # (Auto) 0.50 L [place] # (Auto) 0.70 Eos # (Auto) 0.06 Baso # (Auto) 0.02 INR 2.59 H Sodium 136 Potassium 3.9 Chloride 108 Carbon Dioxide 21 BUN 25 Creatinine 1.1 Estimated Creat Clear 39.09 Estimated GFR 50 Glucose 137 H Calcium 8.2 L
[2023-01-02] MEDS: ACETAMINOPHEN 325 MG TABLET 650 MG PO (18:08)
[2023-01-02] MEDS: WARFARIN 5 MG TABLET 2.5 MG PO (18:08)
[2023-01-02] MEDS: MELATONIN 3 MG TABLET PO (20:38)
[2023-01-02] MEDS: LATANOPROST 0.005% OPHTH 1 DROP EYE-BOTH (20:39)
[2023-01-02] MEDS: CYCLOBENZAPRINE HCL 10 MG TABLET 5 MG PO (22:16)
--- NOTE | 2023-01-02 22:47 | PC.NURSE ---
Shift [id number]- Patient reports pain to left leg this afternoon- requests only tylenol when she is able- which was administered. She again reports worsened left leg and foot pain this evening- sock removed with some relief and she is agreeable to morphine and flexeril. She is up with assist of 1, walker and gait belt and walks in the [place]. Family at bedside and supportive. She has a very weak cough that seems ineffective. Neb administered. Legs wrapped with DANIA. Mepilex to coccyx remains clean, dry and intact.
[2023-01-03] VITALS (11 sets, daily range): BP systolic 110–133; BP diastolic 40–84; PULSE 50–66; RESP 16–20; TEMP 36.1–36.7; O2SAT 91–95
[2023-01-03] MEDS: MORPHINE 10 MG/0.5 ML ORAL SOLN PO ×2 (01:04→21:15)
[2023-01-03] MEDS: PIPERACILLIN/TAZOBACTAM 3.375 GM in 0.9 % SODIUM CHLORIDE Mini-bag 100 ML IVPB ×4 (01:27→19:35)
[2023-01-03] MEDS: SODIUM CHLORIDE 0.9 % (FLUSH) 10 ML SYRINGE 5 ML IVF ×4 (01:27→20:28)
--- NOTE | 2023-01-03 06:06 | PC.NURSE ---
[id number]: Patient cooperative with cares. Fatigued. Denies N/V. PRN Morphine administered for Leg pain. SOB at rest and w/exertion. 1 Lt NC to maintain O2>90%. Weak, intermittent cough. PRN nebulizers administered for breathing/coughing. Mepilex on coccyx C/D/I. Bilateral LE wrapped in Amari wraps. Rested well [id number].
[2023-01-03 06:07] LABS: Basophils Absolute Auto 0.01 K/uL (0.00-0.30); Basophils Percent Auto 0.2 % (0.0-3.0); Eosinophils Absolute Auto 0.14 K/uL (0.00-0.50); Hematocrit 38.4 % (33.0-51.0); Hemoglobin* 12.1 gm/dL (12.0-16.0); Immature Granulocytes Abs Auto 0.05 K/uL (0.00-0.30); Immature Granulocytes Pct Auto 1.1 %; Lymphocytes Percent Auto 9.7 % (20-44); Mean Corpuscular HGB Conc 32 gm/dL (32-36); Mean Corpuscular Hemoglobin 29 pg (26-34); Mean Corpuscular Volume 91 fL (80-100); Monocytes Percent Auto 15.4 % (0.0-11.0); Neutrophils Absolute Auto 3.34 K/uL (1.7-7.0); Neutrophils Percent Auto 70.6 % (42.0-72.0); Platelet Count* 244 K/uL (140-440); RDW Coefficient of Variation % 22.3 % (11.5-15.5); Red Blood Count 4.22 m/uL (4.00-5.20); White Blood Count* 4.73 K/uL (4.50-11.00)
[2023-01-03 06:08] LABS: Slide Review Reflex No
[2023-01-03 06:26] LABS: Albumin* 2.9 g/dL (3.3-5.0); Chloride* 109 mmol/L (96-114)
[2023-01-03 06:27] LABS: Potassium* 4.4 mmol/L (3.6-5.1); Sodium* 139 mmol/L (135-149)
[2023-01-03 06:28] LABS: INR 3.39 (0.91-1.10); Prothrombin Time 35.8 Seconds
[2023-01-03 06:29] LABS: Alkaline Phosphatase* 203 U/L (40-150); Aspartate Amino Transferase* 40 U/L (12-35); Bilirubin Total* 0.9 mg/dL (0.1-1.5); Carbon Dioxide* 25 mmol/L (20-32); Creatinine* 1.2 mg/dL (0.5-1.5); Est. Creatinine Clearance* 35.83; Estimated Glomerular Filt Rate 45 ml/min; Total Protein* 5.6 g/dL (6.0-8.3)
[2023-01-03 06:30] LABS: Alanine Aminotransferase* 39 U/L (4-35); Blood Urea Nitrogen* 29 mg/dL (7-30); Calcium* 8.7 mg/dL (8.4-10.6); Glucose* 59 mg/dL (60-115)
[2023-01-03] MEDS: 0.9 % SODIUM CHLORIDE 250 ml IV (08:00)
[2023-01-03] MEDS: MULTIVITAMIN/MINERALS 1 TABLET 0.5 TAB PO (08:31)
[2023-01-03] MEDS: POTASSIUM CHLORIDE 10 MEQ CAPSULE ER 20 MEQ PO ×2 (08:31→17:53)
[2023-01-03] MEDS: carvediloL 6.25 MG TABLET 12.5 MG PO ×2 (08:32→20:58)
[2023-01-03] MEDS: ESCITALOPRAM 10 MG TABLET 5 MG PO (08:32)
[2023-01-03] MEDS: TRAMADOL HCL 50 MG TABLET PO ×3 (08:32→20:58)
[2023-01-03] MEDS: DORZOLAMIDE HCL 2 % OPHTH DROP 1 DROP EYE-BOTH ×2 (08:32→20:59)
[2023-01-03] MEDS: GABAPENTIN 300 MG CAPSULE PO ×3 (08:32→20:58)
[2023-01-03] MEDS: FUROSEMIDE 40 MG TABLET PO ×2 (08:32→13:55)
[2023-01-03] MEDS: BRIMONIDINE TARTRATE 0.2% OPHTH 1 DROP EYE-BOTH ×2 (08:33→20:25)
[2023-01-03] MEDS: SENNOSIDES 1 TAB TABLET 2 TAB PO ×2 (10:42→20:58)
[2023-01-03] MEDS: polyethylene glycoL 3350 17 GM PACK PO (10:42)
--- NOTE | 2023-01-03 14:50 | PM.IMPN1 ---
Progress Note: A&P Assessment and plan (1) Left upper lobe pneumonia: Status: Acute (2) Breast cancer metastasized to lung: Problem details: Poor prognosis. Patient is clear tells me she does not want CPR, nor to be intubated. However, she wants treatment and continued palliative care for quality of life and extension of her life as long as possible. -pain control: continue gabapentin, trial of SL morphine concentrate (understanding the nuances of her allergies) to achieve best pain control. -workup shows mediastinal lymphadenopathy, left hilar mass, multiple skeletal lesions. -Started on Ribocilib, faslodex in early 2022. Held riboclilib in November secondary to rising creatinine and overall decline. Today she appears to be somewhat sedated I am concerned that the pain medication which are providing palliation of her pain are also diminishing her ability to function independently. Status: Acute (3) Acute systolic heart failure due to valvular disease: Problem details: - requiring low dose supplemental oxygen, + LE edema - tolerating diuresis - Last TTE 11/13 Final Impressions: 1. LVEF 50-55% with moderate LV dilation [LVIDd 5.7 cm]. 2. Moderately dilated RV with preserved global function. 3. Device leads in the right heart. 4. Twwb-bi-rlafoaqg mitral regurgitation. 5. Svdziwob-sp-xgungg tricuspid regurgitation. 6. Dilated IVC with no respiratory variability. Mean RAP estimate 15-20 mmHg. 7. Severe biatrial enlargement. Status: Acute (4) Hyponatremia: Problem details: Continue to trend. Status: Acute (5) Failure to thrive: Problem details: -multifactorial; chemo side effects, burden of disease, long standing heart disease, diabetes, adjustment disorder. -supportive care; speech consult, ENT consult for food stuck and vocal cord issues Expect progressive decline in functional status. Status: Acute (6) Chronic kidney disease: Problem details: Baseline about 1.2, currently 1.1 Status: Acute (7) Presence of cardiac pacemaker: Status: Acute (8) Paroxysmal A-fib: Problem details: -chronic Coumadin therapy -chronic coreg therapy Status: Acute (9) Chronic anticoagulation: Problem details: -continue. high risk for VTE. Daily adjustment of warfarin. Status: Acute (10) Insulin dependent diabetes mellitus: Problem details: She has had morning hypoglycemia. Will reduce long-acting insulin to 8 units at bedtime Status: Acute (11) Elevated LFTs: Problem details: - at baseline per chart review, likely related to metastatic disease Status: Acute (12) Decubitus ulcer: Problem details: Continue to work on mobilization Status: Acute (13) Swallowing difficulty: Problem details: Due to paralyzed vocal cord will have mechanical soft diet and thickened liquids Status: Acute (14) Constipation: Problem details: Initiate laxatives Status: Acute Plan Continue in hospital for treatment of pneumonia. Continue to work with therapy for strengthening. Patient still is a goal of going home with her . Continue to reassess and consider options for meeting her goals of care Time Spent With Patient Total time spent: Total time spent today is 40 minutes, 30 minutes in coordination of care discussing with patient and other providers ongoing evaluation management of breast cancer, edema, pneumonia Subjective Date Seen: 01/03/23 Interval history: 82-year-old female with metastatic breast cancer admitted to the hospital with increasing weakness, lower extremity edema, fatigue, malaise. She has been getting oncology care through [facility]. She was poorly tolerating recent chemotherapy and was scheduled for radiation therapy for a painful lesion in her back but was hospitalized instead. At home she has been weak. She is needing the assistance of her and a walker to get around. She has had ongoing problems with pain control. At the time of admission she was seen to have a left upper lobe pneumonia. She has been treated with piperacillin tazobactam. Yesterday she appeared to do better with therapy but today therapy felt that she was weaker. She has not had a bowel movement since admission Exam Narrative: Exam Narrative: She is alert and appears in no distress. She does doze off to sleep briefly during our encounter. Respirations are clear to auscultation. Cardiovascular: S1, S2, regular rate and rhythm. Abdomen: Bowel sounds active. Abdomen is somewhat protuberant soft and nontender. Extremities with no significant edema in the lower extremities but she does have edema in her thighs bilaterally. Const: Vital Signs, click to edit/add: Vital Signs - 24 hr 01/02/23 15:30 01/02/23 15:30 01/02/23 15:30 Temperature 97.1 F L Pulse Rate Pulse Rate [Right Pulse Oximeter] 53 L Respiratory Rate 20 Blood Pressure [Le ft Arm] 132/49 L Blood Pressure [Ri ght Arm] Pulse Oximetry 90 90 90 Oxygen Delivery Me thod Room Air Room Air Oxygen Flow Rate 01/02/23 15:30 01/02/23 16:38 01/02/23 19:49 Temperature 96.9 F L Pulse Rate 53 L Pulse Rate [Right Pulse Oximeter] 63 Respiratory Rate 22 Blood Pressure [Le ft Arm] 130/51 L Blood Pressure [Ri ght Arm] Pulse Oximetry 90 91 Oxygen Delivery Me thod Room Air Room Air Oxygen Flow Rate 01/02/23 22:23 01/02/23 23:00 01/02/23 23:00 Temperature 97.5 F L Pulse Rate Pulse Rate [Right Pulse Oximeter] 61 Respiratory Rate 22 22 Blood Pressure [Le ft Arm] 136/50 L Blood Pressure [Ri ght Arm] Pulse Oximetry 93 93 93 Oxygen Delivery Me thod Room Air Nasal Cannula Oxygen Flow Rate 1.0 01/03/23 00:00 01/02/23 23:00 01/03/23 01:24 Temperature 97.2 F L Pulse Rate 52 L Pulse Rate [Right Pulse Oximeter] 52 L 64 Respiratory Rate 16 Blood Pressure [Le ft Arm] 117/42 L Blood Pressure [Ri ght Arm] Pulse Oximetry 95 Oxygen Delivery Me thod [place] Nasal [place] Oxygen Flow Rate 1.0 01/03/23 07:00 01/03/23 07:00 01/03/23 07:00 Temperature 97.0 F L Pulse Rate Pulse Rate [Right Pulse Oximeter] 65 Respiratory Rate 20 Blood Pressure [Le ft Arm] Blood Pressure [Ri ght Arm] 133/73 Pulse Oximetry 92 92 91 Oxygen Delivery Me thod Nasal Cannula Nasal Cannula Oxygen Flow Rate 1 1 01/03/23 08:00 01/03/23 11:00 01/03/23 07:00 Temperature 98.1 F Pulse Rate 50 L Pulse Rate [Right Pulse Oximeter] 66 66 Respiratory Rate 20 20 Blood Pressure [Le ft Arm] Blood Pressure [Ri ght Arm] 110/42 L Pulse Oximetry 92 Oxygen Delivery Me thod Nasal Cannula Oxygen Flow Rate 1 Labs Labs: Laboratory Results - last 24 hr 01/03/23 05:47 WBC 4.73 RBC 4.22 Hgb 12.1 Hct 38.4 MCV 91 MCH 29 MCHC 32 RDW Coeff of Fly 22.3 H Plt Count 244 Neut % (Auto) 70.6 Lymph % (Auto) 9.7 L [place] % (Auto) 15.4 H Eos % (Auto) 3.0 Baso % (Auto) 0.2 Neut # (Auto) 3.34 Lymph # (Auto) 0.50 L [place] # (Auto) 0.70 Eos # (Auto) 0.14 Baso # (Auto) 0.01 INR 3.39 H Sodium 139 Potassium 4.4 Chloride 109 Carbon Dioxide 25 BUN 29 Creatinine 1.2 Estimated Creat Clear 35.83 Estimated GFR 45 Glucose 59 L Calcium 8.7 Total Bilirubin 0.9 AST 40 H ALT 39 H Alkaline Phosphatase 203 H C-Reactive Protein 6.0 H Total Protein 5.6 L Albumin 2.9 L
--- NOTE | 2023-01-03 15:27 | PC.NURSE ---
End of Shift: Patient pleasant and cooperative. Afebrile. O2 sats 90-92% on 1L NC, sats decrease to 85-88% on room air. Up to bathroom and chair with 1 assist, walker and gait belt. Rating pain in legs and back 2-5/10 and managed with scheduled Ultram. Blood glucose this morning 61,able to drink juice and increased to 73, eating breakfast, updated MD. Edema noted in bilateral feet/ankles and thighs, MD updated.
[2023-01-03] MEDS: ACETAMINOPHEN 325 MG TABLET 650 MG PO ×2 (15:55→20:58)
[2023-01-03] MEDS: IPRAT-ALBUT 0.5-2.5 MG/3 ML NEB 1 NEB IH ×2 (16:09→19:15)
[2023-01-03] MEDS: LATANOPROST 0.005% OPHTH 1 DROP EYE-BOTH (20:56)
[2023-01-03] MEDS: MELATONIN 3 MG TABLET PO (20:58)
--- NOTE | 2023-01-03 22:17 | PC.NURSE ---
Shift [id number]- Patient rates pain to legs at 5/10 this shift, PRN pain medications given per her preference- see eMAR for administrations. She is up in chair this evening with family and bedside and supportive. She walks with gait belt, assist of 1, and walker- some SOB with activity. She requests un-thickened water, even after additional education, which was given. She is agreeable to nebulizers when offered. Belly is distended.
[2023-01-04] VITALS (7 sets, daily range): BP systolic 107–124; BP diastolic 45–55; PULSE 56–65; RESP 16–22; TEMP 36.2–36.9; O2SAT 91–94
[2023-01-04] MEDS: PIPERACILLIN/TAZOBACTAM 3.375 GM in 0.9 % SODIUM CHLORIDE Mini-bag 100 ML IVPB ×4 (02:22→20:23)
[2023-01-04] MEDS: TRAMADOL HCL 50 MG TABLET PO ×4 (02:23→20:30)
[2023-01-04] MEDS: MORPHINE 10 MG/0.5 ML ORAL SOLN PO ×3 (02:49→22:14)
[2023-01-04 06:24] LABS: INR 3.16 (0.91-1.10); Prothrombin Time 33.9 Seconds
[2023-01-04 06:29] LABS: C Reactive Protein* 5.5 mg/dL (0.5-1.0)
--- NOTE | 2023-01-04 06:42 | PC.NURSE ---
[id number]: Patient pleasant and cooperative. Fatigued and weak. A1/walker/GB. Notably weaker than yesterday. PRN Morphine x1 for pain control. 1 Lt NC to maintain O2>90%. Large BM this shift.
[2023-01-04] MEDS: SODIUM CHLORIDE 0.9 % (FLUSH) 10 ML SYRINGE 5 ML IVF ×3 (08:00→20:29)
[2023-01-04] MEDS: 0.9 % SODIUM CHLORIDE 250 ml IV (08:02)
[2023-01-04] MEDS: BRIMONIDINE TARTRATE 0.2% OPHTH 1 DROP EYE-BOTH ×2 (08:50→20:30)
[2023-01-04] MEDS: ESCITALOPRAM 10 MG TABLET 5 MG PO (08:56)
[2023-01-04] MEDS: carvediloL 6.25 MG TABLET 12.5 MG PO (08:56)
[2023-01-04] MEDS: FUROSEMIDE 40 MG TABLET PO ×2 (08:56→14:05)
[2023-01-04] MEDS: POTASSIUM CHLORIDE 10 MEQ CAPSULE ER 20 MEQ PO ×2 (08:56→17:26)
[2023-01-04] MEDS: MULTIVITAMIN/MINERALS 1 TABLET 0.5 TAB PO (08:56)
[2023-01-04] MEDS: GABAPENTIN 300 MG CAPSULE PO ×3 (08:57→20:30)
[2023-01-04] MEDS: DORZOLAMIDE HCL 2 % OPHTH DROP 1 DROP EYE-BOTH ×2 (08:57→20:30)
[2023-01-04] MEDS: SENNOSIDES 1 TAB TABLET 2 TAB PO ×2 (08:57→20:29)
--- NOTE | 2023-01-04 11:17 | CRLHL7_ITS ---
For Patients: As a result of the Century Cures Act, medical imaging exams and procedure reports are released immediately into your electronic medical record. You may view this report before your referring provider. If you have questions, please contact your health care provider. Indication: Hypoxia pneumonia Technique: Portable chest Comparison: Chest x-ray 01/01/2023 Findings: Enlarged cardiac silhouette. Left cardiac pacer. Left basilar opacity appears increased. Could represent a combination of atelectasis/consolidation possible effusion. No pneumothorax. Dictated by Eneida Pena MD @ 01/04/2023 1:25:13 PM (Electronically Signed)
--- NOTE | 2023-01-04 12:52 | P.IMPN_ITS ---
Progress Note: A&P Assessment and plan (1) Left upper lobe pneumonia: Problem details: Clinically and radiographically appears improved Status: Acute (2) Breast cancer metastasized to lung: Problem details: Poor prognosis. Patient is clear tells me she does not want CPR, nor to be intubated. However, she wants treatment and continued palliative care for quality of life and extension of her life as long as possible. -pain control: continue gabapentin, trial of SL morphine concentrate (understanding the nuances of her allergies) to achieve best pain control. -workup shows mediastinal lymphadenopathy, left hilar mass, multiple skeletal lesions. -Started on Ribocilib, faslodex in early 2022. Held riboclilib in November secondary to rising creatinine and overall decline. 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 Has moderate edema in her lower extremities but does not appear to have significant pulmonary edema. - Last TTE 11/13 Final Impressions: 1. LVEF 50-55% with moderate LV dilation [LVIDd 5.7 cm]. 2. Moderately dilated RV with preserved global function. 3. Device leads in the right heart. 4. Hmtt-kh-mljakrso mitral regurgitation. 5. Laobzapa-fy-wygyoj tricuspid regurgitation. 6. Dilated IVC with no respiratory variability. Mean RAP estimate 15-20 mmHg. 7. Severe biatrial enlargement. Status: Acute (4) Hyponatremia: Problem details: Resolved Status: Acute (5) Failure to thrive: Problem details: -multifactorial; chemo side effects, burden of disease, long standing heart disease, diabetes, adjustment disorder. -supportive care; speech consult, ENT consult for food stuck and vocal cord issues Expect progressive decline in functional status. Status: Acute (6) Chronic kidney disease: Problem details: Stable Status: Acute (7) Presence of cardiac pacemaker: Status: Acute (8) Paroxysmal A-fib: Problem details: -chronic Coumadin therapy -chronic coreg therapy Status: Acute (9) Chronic anticoagulation: Problem details: -continue. high risk for VTE. Daily adjustment of warfarin. Status: Acute (10) Insulin dependent diabetes mellitus: Problem details: She has had morning hypoglycemia. Will reduce long-acting insulin to 8 units at bedtime Status: Acute (11) Elevated LFTs: Problem details: - at baseline per chart review, likely related to metastatic disease Status: Acute (12) Decubitus ulcer: Problem details: Continue to work on mobilization Status: Acute (13) Swallowing difficulty: Problem details: Due to paralyzed vocal cord will have mechanical soft diet and thickened liquids Status: Acute (14) Constipation: Problem details: Initiate laxatives Status: Acute (15) Hypotension: Problem details: Blood pressure is relatively low. Start to wean antihypertensives Status: Acute (16) Palliative care encounter: Problem details: Patient with metastatic breast cancer not tolerating recent chemotherapy and increasingly frail. Talked with patient and about prognosis, increasing need for assistance with ADLs and goals of care. Status: Acute Plan Continue in-hospital to manage pneumonia, hypoxia. Continue to address profound weakness. Ongoing discussion about palliative care. Looking for safe discharge plan. Time Spent With Patient Total time spent: Total time spent today is 60 minutes, 20 minutes in coordination of care. 30 minutes counseling with patient and goals of care, need for more assistance, prognosis. Subjective Date Seen: 01/04/23 Interval history: 82-year-old female with metastatic breast cancer admitted to the hospital with increasing weakness, lower extremity edema, fatigue, malaise. She has been getting oncology care through [facility]. She was poorly tolerating recent chemotherapy and was scheduled for radiation therapy for a painful lesion in her back but was hospitalized instead. At home she has been weak. She is needing the assistance of her and a walker to get around. She has had ongoing problems with pain control. At the time of admission she was seen to have a left upper lobe pneumonia. She has been treated with piperacillin tazobactam. She continues to be quite weak and need assistance with standing transferring and even turning in bed. She reports her pain is adequately controlled today. She has been able to eat though continues to have difficulties due to a feeling of a mass in her neck. Exam Narrative: Exam Narrative: She is alert and oriented to her circumstances. Respiration with prominent rhonchi, suspected to be due to upper airway noise but also possibly lower airway. Diffuse rhonchi on auscultation. Cardiovascular: S1, S2, regular rate and rhythm. Abdomen: Bowel sounds active. Abdomen is soft without tenderness or mass. Extremities with 2+ edema involving both legs from the thighs to the feet. Elastic bandages wrapped over both legs. Small superficial ulcers on both legs right greater than left without significant cellulitis. Quite weak with moving arms and legs and repositioning in bed Const: Vital Signs, click to edit/add: Vital Signs - 24 hr 01/03/23 15:44 01/03/23 16:15 01/03/23 16:15 Temperature Pulse Rate 64 Pulse Rate [Right Pulse Oximeter] 66 Respiratory Rate 18 Blood Pressure [Ri ght Arm] 124/40 L Pulse Oximetry 93 93 Oxygen Delivery Me thod Nasal Cannula Nasal Cannula Oxygen Flow Rate 1 1 01/03/23 19:19 01/03/23 22:25 01/03/23 23:10 Temperature 97.7 F Pulse Rate Pulse Rate [Right Pulse Oximeter] 58 L Respiratory Rate 18 18 Blood Pressure [Ri ght Arm] 124/49 L Pulse Oximetry 93 93 93 Oxygen Delivery Me thod Nasal Cannula Nasal Cannula Oxygen Flow Rate 1 1.0 01/03/23 23:10 01/03/23 23:00 01/04/23 02:40 Temperature 97.9 F 98.0 F Pulse Rate 58 L Pulse Rate [Right Pulse Oximeter] 63 61 Respiratory Rate 20 16 Blood Pressure [Ri ght Arm] 133/84 122/52 L Pulse Oximetry 91 91 Oxygen Delivery Me thod Nasal Cannula Nasal Cannula Oxygen Flow Rate 1.0 1.0 01/04/23 07:00 01/04/23 07:00 01/04/23 07:00 Temperature 98.4 F Pulse Rate Pulse Rate [Right Pulse Oximeter] 56 L Respiratory Rate 20 Blood Pressure [Ri ght Arm] 115/48 L Pulse Oximetry 94 91 91 Oxygen Delivery Me thod Nasal Cannula Nasal Cannula Oxygen Flow Rate 1 1 01/04/23 07:00 01/04/23 07:00 01/04/23 11:00 Temperature 97.2 F L Pulse Rate 63 Pulse Rate [Right Pulse Oximeter] 56 L 65 Respiratory Rate 20 22 Blood Pressure [Ri ght Arm] 107/45 L Pulse Oximetry 92 Oxygen Delivery Me thod Nasal Cannula Oxygen Flow Rate 1 Documenting provider has reviewed patient's vital signs: yes Labs Labs: Laboratory Results - last 24 hr 01/04/23 06:00 INR 3.16 H C-Reactive Protein 5.5 H
--- NOTE | 2023-01-04 13:54 | RESP.RT ---
Work with patient to promote improved cough to mobilize and clear secretions. Bilateral Breath sound with coarse upper airway crackles, clearing with cough. Patient has poor cough. Worked with patient to take one normal breath, then next breath bigger, and the third breath as large as she can and cough. Patient followed instructions and gave a good cough on third inhalation. Patient upper airway sounded less coarse. Patient even noticed difference. Repeated with patient X5 By the 5th breath patient had clearer voice and less upper airway crackles. Patient understands how this is helping, and states it's easier to do and less stressful than just one big breath to cough, to work up to it. RT and nurse will encourage patient to 1-2-3 and cough, work up to Deep breathing and cough.
[2023-01-04] MEDS: WARFARIN 2 MG TABLET 1 MG PO (17:26)
[2023-01-04] MEDS: carvediloL 6.25 MG TABLET PO (20:29)
[2023-01-04] MEDS: MELATONIN 3 MG TABLET PO (20:30)
[2023-01-04] MEDS: LATANOPROST 0.005% OPHTH 1 DROP EYE-BOTH (20:30)
--- NOTE | 2023-01-04 22:47 | PC.NURSE ---
End of Shift: Patient pleasant and cooperative. Afebrile. 1L O2 via NC to keep sats above 90%. Rating pain in legs and back 2-4/10 and controlled with PRN Roxanol x2 and scheduled Ultram. Up to bathroom and chair with 1 assist, walker and gait belt. Tolerating regular diet with no nausea.
[2023-01-05] VITALS (8 sets, daily range): BP systolic 107–134; BP diastolic 46–78; PULSE 55–73; RESP 9–14; TEMP 36.1–36.9; O2SAT 90–93
[2023-01-05] MEDS: MORPHINE 10 MG/0.5 ML ORAL SOLN PO ×3 (00:59→09:10)
[2023-01-05] MEDS: IPRAT-ALBUT 0.5-2.5 MG/3 ML NEB 1 NEB IH ×3 (00:59→09:20)
[2023-01-05] MEDS: PIPERACILLIN/TAZOBACTAM 3.375 GM in 0.9 % SODIUM CHLORIDE Mini-bag 100 ML IVPB ×4 (01:11→19:55)
[2023-01-05] MEDS: TRAMADOL HCL 50 MG TABLET PO ×4 (04:56→20:09)
--- NOTE | 2023-01-05 06:39 | PC.NURSE ---
[id number]: Patient experiencing increased weakness and fatigue. Moist intermittent weak cough. Patient struggles to cough up sputum d/t weakness. PRN Morphine and Nebs administered. Patient with respirations of 9-12/hr throughout noc w/occasional grunting. Trouble swallowing thickened fluids. Heavy A1/walker/GB to BSC.
[2023-01-05 06:40] LABS: Basophils Percent Auto 0.3 % (0.0-3.0); Eosinophils Percent Auto 4.1 % (0.0-7.0); Hematocrit 40.2 % (33.0-51.0); Hemoglobin* 12.3 gm/dL (12.0-16.0); Immature Granulocytes Pct Auto 0.5 %; Lymphocytes Percent Auto 13.5 % (20-44); Mean Corpuscular HGB Conc 31 gm/dL (32-36); Mean Corpuscular Hemoglobin 28 pg (26-34); Mean Corpuscular Volume 93 fL (80-100); Monocytes Percent Auto 14.2 % (0.0-11.0); Neutrophils Percent Auto 67.4 % (42.0-72.0); Platelet Count* 210 K/uL (140-440); RDW Coefficient of Variation % 22.1 % (11.5-15.5); Red Blood Count 4.33 m/uL (4.00-5.20); White Blood Count* 3.86 K/uL (4.50-11.00)
[2023-01-05 06:48] LABS: Slide Review Reflex No
[2023-01-05 07:08] LABS: Chloride* 106 mmol/L (96-114); INR 2.97 (0.91-1.10); Potassium* 4.8 mmol/L (3.6-5.1); Prothrombin Time 32.3 Seconds; Sodium* 136 mmol/L (135-149)
[2023-01-05 07:11] LABS: Creatinine* 1.2 mg/dL (0.5-1.5); Est. Creatinine Clearance* 35.83; Estimated Glomerular Filt Rate 45 ml/min
[2023-01-05 07:12] LABS: Blood Urea Nitrogen* 29 mg/dL (7-30); Calcium* 8.7 mg/dL (8.4-10.6); Carbon Dioxide* 25 mmol/L (20-32); Glucose* 94 mg/dL (60-115)
[2023-01-05 07:15] LABS: C Reactive Protein* 4.4 mg/dL (0.5-1.0)
[2023-01-05] MEDS: SODIUM CHLORIDE 0.9 % (FLUSH) 10 ML SYRINGE 5 ML IVF ×3 (07:55→19:55)
[2023-01-05] MEDS: FUROSEMIDE 40 MG TABLET PO ×2 (08:19→13:45)
[2023-01-05] MEDS: POTASSIUM CHLORIDE 10 MEQ CAPSULE ER 20 MEQ PO ×2 (08:20→18:23)
[2023-01-05] MEDS: BRIMONIDINE TARTRATE 0.2% OPHTH 1 DROP EYE-BOTH ×2 (09:02→20:05)
[2023-01-05] MEDS: carvediloL 6.25 MG TABLET PO ×2 (09:03→20:09)
[2023-01-05] MEDS: ESCITALOPRAM 10 MG TABLET 5 MG PO (09:03)
[2023-01-05] MEDS: SENNOSIDES 1 TAB TABLET 2 TAB PO ×2 (09:03→20:08)
[2023-01-05] MEDS: GABAPENTIN 300 MG CAPSULE PO ×3 (09:03→20:09)
[2023-01-05] MEDS: MULTIVITAMIN/MINERALS 1 TABLET 0.5 TAB PO (09:03)
[2023-01-05] MEDS: DORZOLAMIDE HCL 2 % OPHTH DROP 1 DROP EYE-BOTH ×2 (09:04→19:55)
[2023-01-05] MEDS: ACETAMINOPHEN 325 MG TABLET 650 MG PO ×2 (09:11→14:41)
--- NOTE | 2023-01-05 15:53 | PC.SOCIAL ---
Discharge plan: Met with pt and in room regarding d/c plan. shared that pt needs more assistance than is currently available at home and requested placement at [facility] for rehab services at discharge. plans to continue to look into hiring help at home to be able to take pt home from [facility] after a stay there. is not planning for pt to continue with chemo or radiation at this time as he states she is too weak to do this. Called and faxed information to [facility]. Received call back from Milvia at [facility] stating they can accept pt for admit for rehab on Thursday01/07/23. Met with pt and who are aware and agree with this plan. is requesting transportation be arranged with [facility] non-emergency EMS and is aware and agrees to pay privately for this cost. PRovided with copy of the Medicare Rights Form which he signed and is aware of process to appeal discharge. 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
[2023-01-05] MEDS: WARFARIN 2 MG TABLET 1 MG PO (16:57)
--- NOTE | 2023-01-05 17:03 | P.IMPN_ITS ---
Progress Note: A&P Assessment and plan (1) Left upper lobe pneumonia: Problem details: Clinically and radiographically appears improved Status: Acute (2) Breast cancer metastasized to lung: Problem details: Poor prognosis. Patient is clear tells me she does not want CPR, nor to be intubated. However, she wants treatment and continued palliative care for quality of life and extension of her life as long as possible. -pain control: continue gabapentin, trial of SL morphine concentrate (understanding the nuances of her allergies) to achieve best pain control. -workup shows mediastinal lymphadenopathy, left hilar mass, multiple skeletal lesions. -Started on Ribocilib, faslodex in early 2022. Held riboclilib in November secondary to rising creatinine and overall decline. 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 Has moderate edema in her lower extremities but does not appear to have significant pulmonary edema. - Last TTE 11/13 Final Impressions: 1. LVEF 50-55% with moderate LV dilation [LVIDd 5.7 cm]. 2. Moderately dilated RV with preserved global function. 3. Device leads in the right heart. 4. Xise-qk-ivpwxszi mitral regurgitation. 5. Pxbkcoya-pw-drtkpf tricuspid regurgitation. 6. Dilated IVC with no respiratory variability. Mean RAP estimate 15-20 mmHg. 7. Severe biatrial enlargement. Status: Acute (4) Hyponatremia: Problem details: Resolved Status: Acute (5) Failure to thrive: Problem details: -multifactorial; chemo side effects, burden of disease, long standing heart disease, diabetes, adjustment disorder. -supportive care; speech consult, ENT consult for food stuck and vocal cord issues Expect progressive decline in functional status. Status: Acute (6) Chronic kidney disease: Problem details: Stable Status: Acute (7) Presence of cardiac pacemaker: Status: Acute (8) Paroxysmal A-fib: Problem details: -chronic Coumadin therapy -chronic coreg therapy Status: Acute (9) Chronic anticoagulation: Problem details: -continue. high risk for VTE. Daily adjustment of warfarin. Status: Acute (10) Insulin dependent diabetes mellitus: Problem details: She has had morning hypoglycemia. Will reduce long-acting insulin to 8 units at bedtime Status: Acute (11) Elevated LFTs: Problem details: - at baseline per chart review, likely related to metastatic disease Status: Acute (12) Decubitus ulcer: Problem details: Continue to work on mobilization Status: Acute (13) Swallowing difficulty: Problem details: Due to paralyzed vocal cord will have mechanical soft diet and thickened liquids Status: Acute (14) Constipation: Problem details: Initiate laxatives Status: Acute (15) Hypotension: Problem details: Blood pressure is relatively low. Start to wean antihypertensives Status: Acute (16) Palliative care encounter: Problem details: Patient with metastatic breast cancer not tolerating recent chemotherapy and increasingly frail. Talked with patient and about prognosis, increasing need for assistance with ADLs and goals of care. Status: Acute (17) Chronic pain: Problem details: With tramadol and morphine patient is getting quite good pain relief. She is having moderate side effects of sedation and constipation which appear to be well managed and tolerable. Status: Acute Plan Had a long conversation with family today. As patient has had significant recent decline which is expected to continue, she is not likely to be a good candidate for any type of palliative chemotherapy. I am recommending hospice care. Family is undecided about the course of action they would like to take. There is also concern about her need for long term care. Think her needs now exceed what her can manage by himself. After long conversation it appears the decision will be for her to go to [address] [place] [address] in the next day or 2. Time Spent With Patient Total time spent: Total time spent today is 70 minutes, 30 minutes in counseling with the family, 25 minutes in coordination of care. Subjective Date Seen: 01/05/23 Interval history: 82-year-old female with metastatic breast cancer admitted to the hospital with increasing weakness, lower extremity edema, fatigue, malaise. She has been getting oncology care through [facility]. She was poorly tolerating recent chemotherapy and was scheduled for radiation therapy for a painful lesion in her back but was hospitalized instead. At home she has been weak. She is needing the assistance of her and a walker to get around. She has had ongoing problems with pain control. At the time of admission she was seen to have a left upper lobe pneumonia. She has been treated with piperacillin tazobactam. She continues to be quite weak and need assistance with standing transferring and even turning in bed. She reports her pain is adequately controlled today. She has been able to eat though continues to have difficulties due to a feeling of a mass in her throat. Today she continues report that her pain is well controlled with tramadol and p.r.n. morphine. With this she is somewhat sleepy. She easily arouses but dozes off to sleep if left undisturbed. She continues to feel like to something in her throat that is affecting her swallowing primarily but also a little bit her airway causing her to cough and attempt to clear her throat regularly.. Exam Narrative: Exam Narrative: She is somewhat sleepy but easily arouses with voice. She is pleasant and cooperative. Neck is supple without mass or adenopathy no stridor. She does have prominent audible rhonchi. Cardiovascular: S1, S2, regular rate and rhythm. Lungs are relatively clear to auscultation except for mild diffuse rhonchi. No wheezing or consolidation. Abdomen: Bowel sounds active. Abdomen is soft without tenderness or mass. Extremities with 2+ edema. Const: Vital Signs, click to edit/add: Vital Signs - 24 hr 01/04/23 19:00 01/04/23 23:00 01/04/23 23:00 Temperature 97.8 F Pulse Rate Pulse Rate [Right Pulse Oximeter] 65 Respiratory Rate 20 20 Blood Pressure [Ri ght Arm] 124/54 L Pulse Oximetry 91 91 93 Oxygen Delivery Me thod Nasal Cannula Nasal Cannula Oxygen Flow Rate 1 1 01/04/23 23:00 01/05/23 00:32 01/05/23 00:45 Temperature 97.5 F L Pulse Rate 60 Pulse Rate [Right Pulse Oximeter] 63 56 L Respiratory Rate 9 L 9 L Blood Pressure [Ri ght Arm] 113/71 Pulse Oximetry 90 Oxygen Delivery Me thod Nasal Cannula Oxygen Flow Rate 1.0 01/05/23 05:08 01/05/23 07:00 01/05/23 07:00 Temperature 97.6 F 98.2 F Pulse Rate Pulse Rate [Right Pulse Oximeter] 60 73 Respiratory Rate 10 L 10 L Blood Pressure [Ri ght Arm] 116/78 134/46 L Pulse Oximetry 93 92 92 Oxygen Delivery Me thod Nasal Cannula Nasal Cannula Oxygen Flow Rate 1.0 1 01/05/23 07:00 01/05/23 07:00 01/05/23 07:00 Temperature Pulse Rate 55 L Pulse Rate [Right Pulse Oximeter] 73 Respiratory Rate 10 L 10 L Blood Pressure [Ri ght Arm] Pulse Oximetry 92 Oxygen Delivery Me thod Nasal Cannula Oxygen Flow Rate 1 01/05/23 11:00 01/05/23 15:00 01/05/23 15:00 Temperature 97 F L 98.4 F Pulse Rate Pulse Rate [Right Pulse Oximeter] 56 L 56 L Respiratory Rate 14 12 Blood Pressure [Ri ght Arm] 115/50 L 128/50 L Pulse Oximetry 93 90 90 Oxygen Delivery Me thod Nasal Cannula Room Air Oxygen Flow Rate 1 01/05/23 15:00 01/05/23 15:00 01/05/23 15:00 Temperature Pulse Rate 62 Pulse Rate [Right Pulse Oximeter] 56 L Respiratory Rate 12 12 Blood Pressure [Ri ght Arm] Pulse Oximetry 90 Oxygen Delivery Me thod Room Air Oxygen Flow Rate 1 Documenting provider has reviewed patient's vital signs: yes Labs Labs: Laboratory Results - last 24 hr 01/05/23 05:56 WBC 3.86 L RBC 4.33 Hgb 12.3 Hct 40.2 MCV 93 MCH 28 MCHC 31 L RDW Coeff of Fly 22.1 H Plt Count 210 Neut % (Auto) 67.4 Lymph % (Auto) 13.5 L [place] % (Auto) 14.2 H Eos % (Auto) 4.1 Baso % (Auto) 0.3 Neut # (Auto) 2.60 Lymph # (Auto) 0.50 L [place] # (Auto) 0.50 Eos # (Auto) 0.20 Baso # (Auto) 0.00 INR 2.97 H Sodium 136 Potassium 4.8 Chloride 106 Carbon Dioxide 25 BUN 29 Creatinine 1.2 Estimated Creat Clear 35.83 Estimated GFR 45 Glucose 94 Calcium 8.7 C-Reactive Protein 4.4 H
--- NOTE | 2023-01-05 19:26 | PC.NURSE ---
End of Shift: Patient pleasant and cooperative. Patient vitally stable, lungs course, BS WNL, IV intact. Patient 1 assist, walker, gb. Patient has rated pain at most 7/10, morphine 5 mg given once and prn tylenol given when due. Patient's blood sugars 96, 133, 163. Patient urinating ambulating to toilet, and had 1 BM. Patient has been taking bites of meals. Patient has been up in chair majority of day. Tele= paced with BBB.
[2023-01-05] MEDS: LATANOPROST 0.005% OPHTH 1 DROP EYE-BOTH (20:06)
[2023-01-05] MEDS: MELATONIN 3 MG TABLET PO (20:09)
[2023-01-06] MEDS: TRAMADOL HCL 50 MG TABLET PO ×2 (02:06→08:52)
[2023-01-06] MEDS: PIPERACILLIN/TAZOBACTAM 3.375 GM in 0.9 % SODIUM CHLORIDE Mini-bag 100 ML IVPB ×2 (02:06→08:53)
[2023-01-06] MEDS: MORPHINE 10 MG/0.5 ML ORAL SOLN PO ×3 (02:11→07:57)
[2023-01-06] MEDS: IPRAT-ALBUT 0.5-2.5 MG/3 ML NEB 1 NEB IH (02:11)
[2023-01-06 02:20] VITALS: BP 131/104; PULSE 70; RESP 14; TEMP 36.4; O2SAT 90
--- NOTE | 2023-01-06 05:44 | PC.NURSE ---
[id number]: Patient cooperative with cares. 2 Lt NC during noc. Frequent T&R. Trouble coughing up sputum d/t weak cough. PRN neb administered. PRN Morphine administered for pain. Mepilex to coccyx C/D/I. Patient requested Amari wraps to come off legs at 0430. Heavy A1/walker/GB.
[2023-01-06 06:49] LABS: Basophils Absolute Auto 0.02 K/uL (0.00-0.30); Basophils Percent Auto 0.4 % (0.0-3.0); Hematocrit 39.4 % (33.0-51.0); Hemoglobin* 12.2 gm/dL (12.0-16.0); Immature Granulocytes Abs Auto 0.07 K/uL (0.00-0.30); Immature Granulocytes Pct Auto 1.4 %; Lymphocytes Percent Auto 10.7 % (20-44); Mean Corpuscular HGB Conc 31 gm/dL (32-36); Mean Corpuscular Hemoglobin 28 pg (26-34); Mean Corpuscular Volume 91 fL (80-100); Monocytes Percent Auto 11.5 % (0.0-11.0); Platelet Count* 194 K/uL (140-440); RDW Coefficient of Variation % 21.4 % (11.5-15.5); Red Blood Count 4.33 m/uL (4.00-5.20); White Blood Count* 4.94 K/uL (4.50-11.00)
[2023-01-06 06:56] LABS: Chloride* 106 mmol/L (96-114); Potassium* 5.3 mmol/L (3.6-5.1); Sodium* 133 mmol/L (135-149)
[2023-01-06 06:58] LABS: Creatinine* 1.2 mg/dL (0.5-1.5); Est. Creatinine Clearance* 35.83; Estimated Glomerular Filt Rate 45 ml/min
[2023-01-06 06:59] LABS: Blood Urea Nitrogen* 30 mg/dL (7-30); Calcium* 8.6 mg/dL (8.4-10.6); Carbon Dioxide* 22 mmol/L (20-32); Glucose* 147 mg/dL (60-115)
[2023-01-06 07:00] VITALS: BP 129/67; PULSE 65; RESP 18; TEMP 36.7; O2SAT 93
[2023-01-06 07:10] LABS: Slide Review Reflex No
[2023-01-06 07:14] LABS: Prothrombin Time 28.3 Seconds
[2023-01-06 07:53] VITALS: PULSE 62
[2023-01-06] MEDS: MULTIVITAMIN/MINERALS 1 TABLET 0.5 TAB PO (08:49)
[2023-01-06] MEDS: GABAPENTIN 300 MG CAPSULE PO (08:49)
[2023-01-06] MEDS: SENNOSIDES 1 TAB TABLET 2 TAB PO (08:50)
[2023-01-06] MEDS: ESCITALOPRAM 10 MG TABLET 5 MG PO (08:50)
[2023-01-06] MEDS: FUROSEMIDE 40 MG TABLET PO (08:51)
[2023-01-06] MEDS: BRIMONIDINE TARTRATE 0.2% OPHTH 1 DROP EYE-BOTH (08:52)
[2023-01-06] MEDS: carvediloL 6.25 MG TABLET PO (08:52)
[2023-01-06] MEDS: DORZOLAMIDE HCL 2 % OPHTH DROP 1 DROP EYE-BOTH (09:02)
[2023-01-06] MEDS: 0.9 % SODIUM CHLORIDE 250 ml IV (09:02)
--- NOTE | 2023-01-06 09:47 | PC.SOCIAL ---
Discharge plan: [facility] PAS completed #[id number]. Met with pt and who are aware and agree with this plan. is requesting non-emergency ambulance transportation and is aware of private pay cost. will follow ambulance over to [facility] at discharge. Husbands questions were answered. Copy of Important Message from Medicare was given to and explained yesterday.
[2023-01-06] MEDS: SODIUM CHLORIDE 0.9 % (FLUSH) 10 ML SYRINGE 5 ML IVF (09:51)
--- NOTE | 2023-01-06 10:36 | P.DS_ITS ---
DS: Providers Provider Date Seen: 01/06/23 Date of admission: 01/01/23 07:58 Primary care physician: Charley Ch DO Admitting Clinician: Charley Ch DO Attending Physician on discharge: Mike Reed MD Date of Discharge: 01/06/23 DS: Diagnosis Discharge Diagnosis (1) Left upper lobe pneumonia: Status: Acute Problem details: Treated with 5 days of Zosyn. Clinically and radiographically appears improved. At high risk for recurrent pneumonia due to metastatic disease and aspiration risk. (2) Breast cancer metastasized to lung: Status: Acute Problem details: Poor prognosis. Ongoing conversation with patient and family about hospice. -pain control: continue gabapentin, trial of SL morphine concentrate (understanding the nuances of her allergies) to achieve best pain control. -workup shows mediastinal lymphadenopathy, left hilar mass, multiple skeletal lesions. -Started on Ribocilib, faslodex in early 2022. Held riboclilib in November secondary to rising creatinine and overall decline. (3) Acute systolic heart failure due to valvular disease: Status: Acute Problem details: Still requiring oxygen. Has moderate edema in her lower extremities but does not appear to have significant pulmonary edema. - Last TTE 11/13 Final Impressions: 1. LVEF 50-55% with moderate LV dilation [LVIDd 5.7 cm]. 2. Moderately dilated RV with preserved global function. 3. Device leads in the right heart. 4. Cwhh-rc-dhmfogus mitral regurgitation. 5. Osshhjtv-if-hhjkvb tricuspid regurgitation. 6. Dilated IVC with no respiratory variability. Mean RAP estimate 15-20 mmHg. 7. Severe biatrial enlargement. (4) Hyponatremia: Status: Acute Problem details: Resolved (5) Failure to thrive: Status: Acute Problem details: -multifactorial; chemo side effects, burden of disease, long standing heart disease, diabetes, adjustment disorder. -supportive care; speech consult, ENT consult for food stuck and vocal cord issues Expect progressive decline in functional status. (6) Chronic kidney disease: Status: Acute Problem details: Stable (7) Presence of cardiac pacemaker: Status: Acute (8) Paroxysmal A-fib: Status: Acute Problem details: -chronic Coumadin therapy -chronic coreg therapy (9) Chronic anticoagulation: Status: Acute Problem details: -continue. high risk for VTE. Warfarin dose decreased due to antibiotic therapy. (10) Insulin dependent diabetes mellitus: Status: Acute Problem details: She has had morning hypoglycemia. Will reduce long-acting insulin to 8 units at bedtime (11) Elevated LFTs: Status: Acute Problem details: - at baseline per chart review, likely related to metastatic disease (12) Decubitus ulcer: Status: Acute Problem details: Continue to work on mobilization (13) Swallowing difficulty: Status: Acute Problem details: Due to paralyzed vocal cord will have mechanical soft diet and thickened liquids (14) Constipation: Status: Acute Problem details: Initiate laxatives (15) Hypotension: Status: Acute Problem details: Blood pressure is relatively low. Start to wean antihypertensives (16) Palliative care encounter: Status: Acute Problem details: Patient with metastatic breast cancer not tolerating recent chemotherapy and increasingly frail. Talked with patient and about prognosis, increasing need for assistance with ADLs and goals of care. (17) Chronic pain: Status: Acute Problem details: With tramadol and morphine patient is getting quite good pain relief. She is having moderate side effects of sedation and constipation which appear to be well managed and tolerable. DS: Summary Hospital Course Hospital Course: 82-year-old female with metastatic breast cancer admitted to the hospital with increasing weakness, lower extremity edema, fatigue, malaise.? She has been getting oncology care through [facility].? She was poorly tolerating recent chemotherapy and was scheduled for radiation therapy for a painful lesion in her back but was hospitalized instead. At home she has been weak.? She is needing the assistance of her and a walker to get around.? She has had ongoing problems with pain control. At the time of admission she was seen to have a left upper lobe pneumonia.? She has been treated with piperacillin tazobactam. She continues to be quite weak and need assistance with standing transferring and even turning in bed.? She reports her pain is adequately controlled today.? She has been able to eat though continues to have difficulties due to a feeling of a mass in her throat. Today she continues report that her pain is well controlled with tramadol and p.r.n. morphine.? With this she is somewhat sleepy.? She easily arouses but dozes off to sleep if left undisturbed.? She continues to feel like to something in her throat that is affecting her swallowing primarily but also a little bit her airway causing her to cough and attempt to clear her throat regularly. Despite working with therapy she seems to have progressive weakness and loss of mobility during her hospital stay. Daily conversation about goals of care with patient and family. Patient is unlikely to recover strength sufficient to be a candidate for ongoing palliative chemotherapy. She was planned to have radiation treatment x1 to her spine to help with pain control from metastases. At this point she does not appear to need it because her pain is been well controlled without radiation. Status at Discharge Functional status at discharge: bed bound Overall status at discharge: other (Ongoing functional decline) Time Spent with Patient Time attestation: Total time spent providing and/or coordinating discharge services: Time spent: Greater than 30 minutes Exam Narrative: Exam Narrative: She is alert and in no obvious distress. She is breathing supplemental oxygen. Rhonchus airway noises and moist cough noted while obtaining the history. Auscultation of the lungs shows diffuse rhonchi as well. Cardiovascular: S1, S2, regular rate and rhythm. Abdomen is soft without tenderness or mass. Extremities with moderate edema. Const: Vital Signs, click to edit/add: Vital Signs - 24 hr 01/05/23 11:00 01/05/23 15:00 01/05/23 15:00 Temperature 97 F L 98.4 F Pulse Rate Pulse Rate [Right Pulse Oximeter] 56 L 56 L Respiratory Rate 14 12 Blood Pressure [Ri ght Arm] 115/50 L 128/50 L Pulse Oximetry 93 90 90 Oxygen Delivery Me thod Nasal Cannula Room Air Oxygen Flow Rate 1 01/05/23 15:00 01/05/23 15:00 01/05/23 15:00 Temperature Pulse Rate 62 Pulse Rate [Right Pulse Oximeter] 56 L Respiratory Rate 12 12 Blood Pressure [Ri ght Arm] Pulse Oximetry 90 Oxygen Delivery Me thod Room Air Oxygen Flow Rate 1 01/05/23 19:57 01/06/23 02:20 01/05/23 23:00 Temperature 97.8 F 97.5 F L Pulse Rate 64 Pulse Rate [Right Pulse Oximeter] 69 70 Respiratory Rate 12 14 Blood Pressure [Ri ght Arm] 107/50 L 131/104 H Pulse Oximetry 91 90 Oxygen Delivery Me thod Nasal Cannula Nasal Cannula Oxygen Flow Rate 1.0 2.0 01/05/23 23:00 01/05/23 23:00 01/06/23 07:53 Temperature Pulse Rate 62 Pulse Rate [Right Pulse Oximeter] Respiratory Rate 14 Blood Pressure [Ri ght Arm] Pulse Oximetry 90 90 Oxygen Delivery Me thod Nasal Cannula Oxygen Flow Rate 2.0 01/06/23 07:00 01/06/23 07:00 01/06/23 07:00 Temperature Pulse Rate Pulse Rate [Right Pulse Oximeter] 65 Respiratory Rate 18 Blood Pressure [facility]] Pulse Oximetry 93 93 Oxygen Delivery Me thod Nasal Cannula Oxygen Flow Rate 2 01/06/23 07:00 Temperature 98.1 F Pulse Rate Pulse Rate [Right Pulse Oximeter] 65 Respiratory Rate 18 Blood Pressure [[facility] Arm] 129/67 Pulse Oximetry 93 Oxygen Delivery Me thod Nasal Cannula Oxygen Flow Rate 2 Documenting provider has reviewed patient's vital signs: yes DS: Data Data Completed and Pending Labs on day of discharge: Labs from last 24 hours 01/06/23 05:56 WBC 4.94 RBC 4.33 Hgb 12.2 Hct 39.4 MCV 91 MCH 28 MCHC 31 L RDW Coeff of Fly 21.4 H Plt Count 194 Neut % (Auto) 74.0 H Lymph % (Auto) 10.7 L [place] % (Auto) 11.5 H Eos % (Auto) 2.0 Baso % (Auto) 0.4 Neut # (Auto) 3.70 Lymph # (Auto) 0.50 L [place] # (Auto) 0.60 Eos # (Auto) 0.10 Baso # (Auto) 0.02 INR 2.50 H Sodium 133 L Potassium 5.3 H Chloride 106 Carbon Dioxide 22 BUN 30 Creatinine 1.2 Estimated Creat Clear 35.83 Estimated GFR 45 Glucose 147 H Calcium 8.6 Discharge Plan Discharge Disposition: [facility] Date of Admission: 01/01/23 07:58 Attending Provider on Discharge: Gerhard Reed Primary Care Provider: Charley Ch Anticipated Discharge Date/Time: 01/06/23 10:00 Discharge Medications: New carvedilol 6.25 mg Tablet 6.25 mg PO BID Qty: 60 0RF Levemir FlexPen 100 unit/mL (3 mL) Insulin Pen 10 unit subcut DAILY Qty: 15 0RF furosemide 40 mg Tablet 40 mg PO DAILY Qty: 30 0RF potassium chloride 10 mEq Capsule, Extended Release 10 meq PO DAILY Qty: 30 0RF morphine concentrate 10 mg/0.5 mL Syringe 10 mg PO Q2H PRNQty: 30 0RF polyethylene glycol 3350 [Miralax] 17 gram Powder In Packet 17 g PO DAILY PRNQty: 510 0RF warfarin 2 mg tablet 2 mg PO DAILY Qty: 30 0RF Continued atorvastatin 20 mg tablet 20 mg PO HS escitalopram oxalate 5 mg tablet 5 mg PO QAM ondansetron HCl 8 mg tablet 8 mg PO Q8H PRN (Reason: nausea/vomiting) brimonidine 0.2 % drops 1 drp ophthalmic (eye) BID Rx Instructions: BOTH EYES gabapentin 300 mg capsule 300 mg PO QID dorzolamide 2 % drops 1 drp ophthalmic (eye) BID Rx Instructions: LEFT EYE latanoprost 0.005 % drops 1 drp ophthalmic (eye) QPM Rx Instructions: BOTH EYES lidocaine [Anecream] 4 % cream 1 applic topical TID PRN multivitamin [Daily Multi-Vitamin] Tablet 0.5 tab PO DAILY nitroglycerin 0.4 mg tablet, sublingual 0.4 mg sublingual Q5M PRN polyethylene glycol 3350 [ClearLax] 17 gram/dose powder 17 g PO DAILY PRN acetaminophen 325 mg tablet 650 mg PO Q6H PRN Mag 64 64 mg tablet,delayed release (DR/EC) 256 - 320 mg PO TID Rx Instructions: TAKES 5 TABS IN AM AND PM AND 4 TABS IN AFTERNOON melatonin 3 mg tablet 3 mg PO HS Changed tramadol 50 mg tablet 50 mg PO TID Qty: 90 0RF sennosides [Laura-shanice] 8.6 mg tablet 17.2 mg PO BID PRNQty: 100 0RF Discontinued carvedilol 12.5 mg tablet 12.5 mg PO BID insulin glargine [Lantus U-100 Insulin] 100 unit/mL solution 12 unit subcut HS insulin aspart U-100 [Novolog U-100 Insulin aspart] 100 unit/mL solution subcut TIDWM Rx Instructions: TIDWM PER CARB INTAKE subcutaneously 3 times daily; SLIDING SCALE warfarin 5 mg tablet 2.5 mg PO QPM prochlorperazine maleate 5 mg tablet 5 mg PO Q6H PRN (Reason: nausea/vomiting) cyclobenzaprine 5 mg tablet 5 mg PO TID PRN cholecalciferol (vitamin D3) 50 mcg (2,000 unit) capsule 50 mcg PO DAILY calcium citrate-vitamin D3 [Calcium Citrate + D] 315 mg-5 mcg (200 unit) tablet 1 tab PO DAILY ferrous sulfate 325 mg (65 mg iron) tablet 325 mg PO DAILY Discharge Orders: Discharge Order (Routine); Ordered 01/06/23 Ordered By: Gerhard Reed Activity Level: Up with assist Discharge Diet: Regular Dysphagia Food: Level 5- Minced & Moist Dysphagia Liquid: Level 2-Mildly Thick ([place]) Follow Up Appointments: [facility] [Outside] Charley Ch DO [Primary Care Provider] - Wound Care: Decubitus ulcer Admit to: SNF Discharge Potential: Poor Length of Stay: 30-90 days Can use facility standing orders?: Yes Code Status: DNR/DNI TEDs: Bilateral Knee Rehab Potential: Poor Therapy: Physical Therapy and Occupational Therapy Therapy Orders: Evaluate and Treat Oxygen: Yes Oxygen Delivery Method: Nasal Cannula Oxygen Flow Rate: 2 Glucose Checks: Daily in a.m. Next INR: 3 days INR Goal: 2-3 Lab Orders: Basic metabolic panel in 1 week Hospice Evaluate and Admit: Hospice consult Orders are good >30 days: Yes
== END 2023-01-06 11:35 | DRG 193 ==
PROVIDERS: Family Medicine; Internal Medicine; Admitting Provider Family Medicine; PCP Family Medicine; Visit Provider Family Medicine
DX: J18.9 Pneumonia, unspecified organism (principal); I50.21 Acute systolic (congestive) heart failure; E87.1 Hypo-osmolality and hyponatremia; I13.0 Hypertensive heart and chronic kidney disease with heart failure and stage 1 through stage 4 chronic kidney disease, or unspecified chronic kidney disease; C78.00 Secondary malignant neoplasm of unspecified lung; C78.39 Secondary malignant neoplasm of other respiratory organs; C79.51 Secondary malignant neoplasm of bone; G89.3 Neoplasm related pain (acute) (chronic); C50.919 Malignant neoplasm of unspecified site of unspecified female breast; R13.10 Dysphagia, unspecified; N18.9 Chronic kidney disease, unspecified; E11.22 Type 2 diabetes mellitus with diabetic chronic kidney disease; R62.7 Adult failure to thrive; L89.90 Pressure ulcer of unspecified site, unspecified stage; Z95.0 Presence of cardiac pacemaker; I48.0 Paroxysmal atrial fibrillation; G47.33 Obstructive sleep apnea (adult) (pediatric); Z79.01 Long term (current) use of anticoagulants; K59.00 Constipation, unspecified; I25.10 Atherosclerotic heart disease of native coronary artery without angina pectoris; Z79.4 Long term (current) use of insulin; I08.1 Rheumatic disorders of both mitral and tricuspid valves; J38.00 Paralysis of vocal cords and larynx, unspecified; F43.20 Adjustment disorder, unspecified
CPT/HCPCS: 36415; 71045; 71046; 72128; 80048; 80053; 82330; 82803; 82962; 83036; 83605; 83690; 83735; 83880; 84145; 84443; 84484; 85025; 85027; 85610; 86140; 92610; 93005; 94640; 94761; 97110; 97116; 97162; 97166; 97530; 97535; A9153; A9270; G0378; G0379; J0131; J1940; J2060; J2543; J7050; J7120

== ENCOUNTER 2023-01-06 11:41 | Outpatient (CLI) | payer MEDICARE, BC, SELFPAY | END 2023-01-06 11:42 | disposition home or self-care (01) | LOC: AMB 01-09 10:37 | PROVIDERS: PCP Family Medicine; Visit Provider Family Medicine | DX: R53.1 Weakness (principal) | CPT/HCPCS: A0425; A0428 ==